=== PATIENT | male | born 1955 | race Caucasian/White ===

== ENCOUNTER 2023-12-28 18:06 | Inpatient (IN) | payer MEDICARE, OTHER, SELFPAY ==
[2023-12-28 18:06] VITALS: BP 129/62; PULSE 86; RESP 20; TEMP 36.3; O2SAT 97
--- NOTE | 2023-12-28 19:04 | NURSING ---
Patient arrived to unit at 1745.
--- NOTE | 2023-12-28 19:14 | HP.PCM_ITS ---
HPI - General General Date of Admission: 12/28/23 Date of Service: 12/29/23 Chief Complaint: Here for rehabilitation, intravenous antibiotics. HPI Narrative CELSO CARRILLO, is a 68 Male who presents with followin12/20/2023 Admit to [facility]. Fell, unable to get up, brought in by squad. Patient down for a while, daughter could not reach him by phone, called police for welfare check. CT brain okay, X-ray left femur okay, X-ray left shoulder okay. PT/OT for falls. Chest X-ray showed left basilar infiltrate. Vancomycin/Zosyn for sepsis 2/2 pneumonia. CPK 1821. Gentle IV fluids, trend CPK for rhabdomyolysis. Creatinine 3.39, baseline Creatinine 3.2. 12/25/2023 Patient had delirium/visual hallucinations. YOCASTA negative vegetations. Metabolic acidosis resolved, off Bicarb drip. Blood culture growing Group B strep, ID recommended Ceftriaxone IV x 2 weeks. Negative for endocarditis. Creatinine improved to 1.5 with IV fluid hydration. Left shoulder pain needs MRI, Orthopedic follow-up. Hemoglobin stable for anemia of CKD, iron deficiency. Delirium improved. 12/28/2023 Admit to TCU with debility, here for rehabilitation, strengthening, intravenous antibiotics prior to discharge home. [facility] Medical History (Updated 12/28/23 @ 19:[address] Chito Degroot MD) Acute delirium Bacteremia due to group B Streptococcus Chronic diarrhea Chronic kidney disease, stage 3a Debility Diabetes mellitus type II, uncontrolled Glaucoma Gout Hypertension Left rotator cuff tear arthropathy Metabolic acidosis Morbid obesity Multiple falls Obstructive sleep apnea Opioid dependence Rhabdomyolysis Sepsis Umbilical hernia Home Medications acetaminophen 325 mg tablet 650 mg PO Q6H PRN pain 12/28/23 [History Last Taken 12/28/23] allopurinol 300 mg tablet 300 mg PO QHS gout 12/28/23 [History Last Taken ] aspirin 81 mg tablet,delayed release 81 mg PO DAILY heart 12/28/23 [History Last Taken 12/28/23] bumetanide 2 mg tablet 2 mg PO DAILY water pill 12/28/23 [History Last Taken 12/28/23] calcium acetate 667 mg tablet 667 mg PO BID GERD 12/28/23 [History Last Taken 12/28/23] ceftriaxone 2 gram intravenous piggyback 2 g IV Q24H infection 12/28/23 [History Last Taken 12/28/23] cholecalciferol (vitamin D3) 125 mcg (5,000 unit) capsule 125 mcg PO DAILY supplement 12/28/23 [History Last Taken 12/28/23] emollient 1 applic topical BID legs 12/28/23 [History Last Taken 12/28/23] fenofibrate 150 mg capsule 145 mg PO QHS cholesterol 12/28/23 [History Last Taken 12/28/23] folic acid 1 mg tablet 1 mg PO DAILY supplement 12/28/23 [History Last Taken 12/28/23] insulin aspart See Protocol subcut ACHS diabetes 12/28/23 [History Last Taken 12/28/23] insulin glargine 100 unit/mL (3 mL) subcutaneous pen 18 unit subcut BID blood sugar 12/28/23 [History Last Taken 12/28/23] latanoprost 0.005 % eye drops 1 drp EACH EYE QHS eyes 12/28/23 [History Last Taken 12/27/23] miconazole nitrate 2 % topical powder 1 applic topical BID antifungal 12/28/23 [History Last Taken 12/28/23] pantoprazole 40 mg tablet,delayed release 40 mg PO DAILY stomach 12/28/23 [History Last Taken 12/28/23] pioglitazone 45 mg tablet (Actos) 45 mg PO DAILY diabetes 12/28/23 [History Last Taken Unknown] polysaccharide iron complex 150 mg iron capsule (Ferrex) 150 mg PO DAILY supplement 12/28/23 [History Last Taken 12/28/23] sodium bicarbonate 650 mg tablet 650 mg PO DAILY supplemet 12/28/23 [History Last Taken 12/28/23] Allergy/AdvReac Type Severity Reaction Status Date / Time cephalexin [From Keflex] Allergy Unknown swelling Verified 12/28/23 19:00 pseudoephedrine Allergy Unknown Anaphylaxis Verified 12/28/23 19:00 [From Sudafed] Cplrrrg-SHM-LqG Reductase Allergy Unknown muscle pain Verified 12/28/23 19:00 Inhibitor Surgical History (Updated 12/28/23 @ 19:[address] Chito Degroot MD) History of lithotripsy Social History (Updated 12/28/23 @ 19:[address] Chito Degroot MD) household members: none Smoking Status: Never smoker alcohol intake: never substance use type: does not use caffeine: Yes Type: carbonated beverages Number of servings: 1 additional social history: Retired. ROS Constitutional Constitutional: Denies chills, fever(s) or weight gain ENT HEENT: Denies headache(s), nasal congestion or nasal discharge Cardiovascular Cardiovascular: Denies chest pain or palpitations Respiratory/Chest Respiratory/Chest: Denies cough, excessive phlegm production or shortness of breath with exertion Gastrointestinal Gastrointestinal: Denies abdominal pain, nausea or vomiting Genitourinary Genitourinary: Denies dysuria Musculoskeletal Musculoskeletal: Denies joint pain or joint swelling Integumentary Integumentary: Denies rash or wounds Neurologic Neurologic: Denies focal weakness, numbness or tingling Psychiatric Psychiatric: Denies anxiety, auditory hallucinations, depression, homicidal ideation or suicidal ideation Vital Signs Vital Signs Vital Signs: 12/28/23 18:06 Temperature 97.4 F L Temperature Source Temporal Pulse Rate 86 Respiratory Rate 20 H Blood Pressure 129/62 H Blood Pressure Mean 84 Blood Pressure Source Monitor Blood Pressure Position Semi-Fowlers Blood Pressure Location Right Arm Pulse Ox 97 Oxygen Delivery Method Room Air Physical Exam Const alert General Appearance: cooperative HEENT normocephalic Eyes PERRL and EOMs intact bilaterally Neck supple, no JVD and no carotid bruits Resp normal respiratory effort, normal air movement and clear to auscultation bilaterally Cardio regular rate and regular rhythm GI normal to inspection, nondistended, normoactive bowel sounds, non-tender and non-distended Extremity normal capillary refill Extremity Narrative: Right forearm PICC. General Extremity: Negative for edema Skin no rashes or lesions noted General Skin Exam: no breakdown Psych affect normal Appearance: appropriate Results Lab / Micro Data 12/29/23 05:14 12/29/23 05:14 Assessment & Plan Assessment/Plan (1) Debility: (2) Multiple falls: (3) Sepsis: (4) Bacteremia due to group B Streptococcus: (5) Acute delirium: (6) Left rotator cuff tear arthropathy: (7) Rhabdomyolysis: (8) Metabolic acidosis: (9) Morbid obesity: (10) Chronic kidney disease, stage 3a: (11) Diabetes mellitus type II, uncontrolled: (12) Chronic diarrhea: (13) Umbilical hernia: (14) Glaucoma: (15) Gout: (16) Hypertension: (17) Obstructive sleep apnea: (18) Opioid dependence: PLAN: Plan 68 year old male with below past medical hospitalized for Sepsis, Group B strep bacteremia, complicated by acute delirium, rhabdomyolysis, metabolic acidosis, admitted to TCU with debility, here for rehabilitation, strengthening, intravenous antibiotics, prior to discharge home alone. * Debility - PT/OT. * Pain - Tylenol 1000mg q6 prn pain (1-10), Tylenol 1000mg 0800, 2200. * Bowel - senna/colace 1 tablet bid prn, Magnesium citrate 300ml daily prn. * Adult immunization - Administer pneumonia vaccine, covid vaccine, flu vaccine as appropriate. * DVT prophylaxis - Lovenox 30mg sc daily. * Gout - Allopurinol 300mg qhs. * CV prophylaxis - Aspirin 81mg daily. * Edema - Bumex 2mg daily. * Hyperphosphatemia - Phoslo 667mg bidcm. * Group B strep bacteremia/sepsis - Ceftriaxone 2gm iv q24 thru 01/03/2024, Consult Dr. Camargo. * Vitamin D deficiency - D3 125mcg daily. * Hyperlipidemia - Fenofibrate 145mg qhs. * Folate deficiency - Foilc acid 1mg daily. * Diabetes Mellitus II - Pioglitazone 45mg daily, Glargine 18 units bid, Glucagon 1mg im x 1 prn. * Iron deficiency anemia - Ferrex 150mg daily, Vitamin C 500mg daily. * Glaucoma - Latanoprost 1gtt ou qhs. * Tinea Corporis - Miconazole topical bid. * GERD - Pantoprazole 40mg daily. * Skin irritation - Eucerin topical bid. * Metabolic acidosis - Sodium bicarb 650mg daily.
[2023-12-28 20:30] VITALS: PULSE 75; RESP 18; O2SAT 99
[2023-12-28 20:59] VITALS: BMI 47.2
[2023-12-28] MEDS: Latanoprost 0.005% 1 Bottle 1 DRP EACH EYE (21:24)
[2023-12-28] MEDS: Acetaminophen 500 MG Tablet 1000 MG PO (21:25)
[2023-12-28] MEDS: Fenofibrate 145 MG Tablet PO (21:26)
[2023-12-28] MEDS: Allopurinol 300 MG Tablet PO (21:26)
[2023-12-28] MEDS: Insulin Glargine-YFGN 100 UNIT/ML Pen 18 UNIT SC (21:29)
[2023-12-28] MEDS: Miconazole Nitrate 43 GM Bottle 1 APPLIC TOPICAL (21:32)
[2023-12-28] MEDS: Petrolatum 33% Tube 1 APPLIC TOPICAL (21:32)
[2023-12-28 21:39] LABS: Bedside Glucose 164 mg/dL (74-106)
[2023-12-29] MEDS: Acetaminophen 500 MG Tablet 1000 MG PO ×4 (03:29→21:47)
[2023-12-29] MEDS: Enoxaparin 30 MG/0.3 ML Syringe SC (05:46)
[2023-12-29 05:53] LABS: Absolute Neutrophil Count 8.3 X10^3/uL (2.0-7.7); Basophil# 0.05 X10^3/uL; Basophil% 0.5 % (0-1); Eosinophil# 0.24 X10^3/uL; Eosinophils% 2.2 % (0-5); Hematocrit 30.8 % (40-54); Hemoglobin 9.6 g/dL (13.0-16.5); Lymphocyte % 11.7 % (19-41); Mean Corp Hgb Conc 31.2 g/dL (32-36); Mean Corpuscular Hgb 31.2 pg (27.0-32.0); Mean Platelet Vol. 9.2 fl (6.2-12.0); Monocyte# 0.99 X10^3/uL; Monocyte% 8.9 % (0-10); NRBC Flagged by Analyzer 0 % (0-5); Neutrophil # 8.28 X10^3/uL (2.7-7.7); Neutrophil % 74.5 % (47-70); Platelet Count 389 K/mm3 (150-450); RBC Distribution Width CV 14.9 % (11.6-14.6); RBC Distribution Width SD 54.5 fl (35.1-43.9); Red Blood Count 3.08 M/mm3 (4.6-6.2); White Blood Count 11.1 K/mm3 (4.4-11.0)
[2023-12-29 06:31] LABS: Anion Gap 3 (5-15); BUN 35 mg/dL (7-18); Calcium,Total 8.9 mg/dL (8.5-10.1); Chloride 106 mmol/L (98-107); Creatinine, Serum 1.03 mg/dL (0.70-1.30); EST Glomerular Filtration Rate 76 mL/min (>60); Est Glom Filt Rate - Afr Amer 92 mL/min (>60); Estimated Creatinine Clearance 99.19 ml/min; Glucose 128 mg/dL (74-106); Potassium 4.2 mmol/L (3.5-5.1); Sodium Level 139 mmol/L (136-145)
[2023-12-29 07:02] LABS: Bedside Glucose 109 mg/dL (74-106)
[2023-12-29] MEDS: Iron Polysaccharide Complex 150 MG CAPSULE PO (08:59)
[2023-12-29] MEDS: Pioglitazone Hydrochloride 45 MG Tablet PO (08:59)
[2023-12-29] MEDS: Calcium Acetate 667 MG Capsule PO ×2 (08:59→16:41)
[2023-12-29] MEDS: Folic Acid 1 MG Tablet PO (08:59)
[2023-12-29] MEDS: Pantoprazole Sodium 40 MG Tablet PO (08:59)
[2023-12-29] MEDS: Bumetanide 2 MG Tablet PO (08:59)
[2023-12-29] MEDS: Aspirin E.C. 81 MG Tablet PO (08:59)
[2023-12-29] MEDS: Cholecalciferol (Vit D3) 125 MCG CAPSULE (5,000 UNITS) PO (08:59)
[2023-12-29] MEDS: Petrolatum 33% Tube 1 APPLIC TOPICAL ×2 (09:00→21:57)
[2023-12-29] MEDS: Insulin Glargine-YFGN 100 UNIT/ML Pen 18 UNIT SC ×2 (09:00→21:48)
[2023-12-29] MEDS: Ascorbic Acid 500 MG Tablet PO (09:00)
[2023-12-29] MEDS: Miconazole Nitrate 43 GM Bottle 1 APPLIC TOPICAL ×2 (09:01→22:03)
[2023-12-29 09:13] VITALS: BP 142/63; PULSE 84
[2023-12-29] MEDS: 0.9% Saline Lock 10 ML Syringe IV (10:19)
[2023-12-29] MEDS: Tuberculin,Purif.prot.deriv. 50 TU/ML Vial 0.100000000000000006 ML ID (10:20)
--- NOTE | 2023-12-29 10:41 | NURSING ---
Pt's Midline not getting any blood return and c/o of pain when flushing. Dr. Degroot updated N.O. received to discontinue and reinsert a new Midline. Zoe WILLAMS contacted and will be up to insert Midline.
[2023-12-29 10:43] VITALS: BP 130/53; PULSE 82; RESP 16; TEMP 36.6; O2SAT 97
[2023-12-29 11:11] LABS: Bedside Glucose 193 mg/dL (74-106)
[2023-12-29] MEDS: 0.9% Normal Saline (250mL Bag) 250 ML 100 ML IV (12:01)
[2023-12-29] MEDS: Ceftriaxone 2 GM in 0.9% Normal Saline (50mL MB+) 50 ML IV (12:01)
--- NOTE | 2023-12-29 12:11 | PCM.OP.PRO ---
Procedure Report Date of Procedure: 12/29/23 Assessment & Plan Assessment/Plan (1) Bacteremia due to group B Streptococcus: PLAN: Midline insertion in right basilic: Patient identity was verified with two patient identifiers. Hands were sanitized. The patient was positioned supine with right arm at 90 degrees. The patient's upper arm vasculature was assessed using ultrasound, and the right basilic vein was externally marked. An external measurement was obtained of 11 cm. Cap, mask, and prep gloves were donned. The underdrape was placed under the patient's arm. The site was prepped with chlorhexidine, and tourniquet was loosely applied. Prep gloves were discarded, and hands were sanitized. The sterile kit was opened with additional supplies dropped in. Sterile gown and gloves were donned, and the patient was draped. The sterile kit was assembled with all needle, introducer, connector, and catheter flushed with sterile normal saline. The marked site of insertion was anesthetized with 1% lidocaine. Patient tolerated well. The right basilic vein was then accessed using ultrasound guidance and guidewire was inserted to safety airam. The tourniquet was released. The access needle was removed while securing the guidewire in place. The site was again anesthetized with 1% lidocaine, prior to insertion of introducer sheath and dilator. Patient tolerated well. The catheter was trimmed to a length of 11 cm, and a flushed needleless connector was attached. The catheter was then inserted through the introducer sheath, slowly. There was no resistance on insertion. The introducer sheath was retracted and peeled away, incrementally, while keeping the catheter secured. The catheter was fully inserted leaving 0 cm external. Blood return was verified and the midline was flushed with sterile normal saline in a pulsatile fashion. Total sterile flushes used for the insertion was 3 10 ml syringes, one from the kit. Finally, the insertion site was cleaned with chlorhexidine, and the catheter was secured using a StatLock. The site was covered with a Tegaderm CHG Dressing. Baseline arm circumference was obtained at the insertion site and measured 40 cm. The primary nurse is aware that the midline is ready for use. REF: [id number] LOT: [id number] Procedures Radiology Radiology Access Procedures: MIDL
--- NOTE | 2023-12-29 12:44 | CON.PCM.ID_ITS ---
Assessment & Plan Assessment/Plan (1) Bacteremia due to group B Streptococcus: PLAN: Reviewed records from OSH. On ceftriaxone until 01/03/24, ok for line removal at that time. Finish abx as planned. Will follow as needed, thank you HPI Consult Data Date of Consult: 12/29/23 HPI Narrative Reason for Consultation: bacteremia HPI Narrative: CELSO CARRILLO, is a 68 M who presented to [facility] 12/20/23 after fall at home, down on ground around 5 hours. Some chronic L shoulder pain. Admitted on vanc/zosyn. Bcx with strep. Seen by ID, narrowed to ceftriaxone. YOCASTA neg for endocarditis. Discharged to TCU on ceftriaxone until 01/03/24. Feeling better, shoulder still sore, no fever or n/v/d. Full ROS performed and neg except as noted above. [facility] Medical History Acute delirium Bacteremia due to group B Streptococcus Chronic diarrhea Chronic kidney disease, stage 3a Debility Diabetes mellitus type II, uncontrolled Glaucoma Gout Hypertension Left rotator cuff tear arthropathy Metabolic acidosis Morbid obesity Multiple falls Obstructive sleep apnea Opioid dependence Rhabdomyolysis Sepsis Umbilical hernia Home Medications acetaminophen 325 mg tablet 650 mg PO Q6H PRN pain 12/28/23 [History Last Taken 12/28/23] allopurinol 300 mg tablet 300 mg PO QHS gout 12/28/23 [History Last Taken 12/27/23] aspirin 81 mg tablet,delayed release 81 mg PO DAILY heart 12/28/23 [History Last Taken 12/28/23] bumetanide 2 mg tablet 2 mg PO DAILY water pill 12/28/23 [History Last Taken 07/13] calcium acetate 667 mg tablet 667 mg PO BID GERD 12/28/23 [History Last Taken 12/28/23] ceftriaxone 2 gram intravenous piggyback 2 g IV Q24H infection 12/28/23 [History Last Taken 12/28/23] cholecalciferol (vitamin D3) 125 mcg (5,000 unit) capsule 125 mcg PO DAILY supplement 12/28/23 [History Last Taken 12/28/23] emollient 1 applic topical BID legs 12/28/23 [History Last Taken 12/28/23] fenofibrate 150 mg capsule 145 mg PO QHS cholesterol 12/28/23 [History Last Taken 12/28/23] folic acid 1 mg tablet 1 mg PO DAILY supplement 12/28/23 [History Last Taken 12/28/23] insulin aspart See Protocol subcut ACHS diabetes 12/28/23 [History Last Taken 12/28/23] insulin glargine 100 unit/mL (3 mL) subcutaneous pen 18 unit subcut BID blood sugar 12/28/23 [History Last Taken 12/28/23] latanoprost 0.005 % eye drops 1 drp EACH EYE QHS eyes 12/28/23 [History Last Taken 12/27/23] miconazole nitrate 2 % topical powder 1 applic topical BID antifungal 12/28/23 [History Last Taken 12/28/23] pantoprazole 40 mg tablet,delayed release 40 mg PO DAILY stomach 12/28/23 [History Last Taken 12/28/23] pioglitazone 45 mg tablet (Actos) 45 mg PO DAILY diabetes 12/28/23 [History Last Taken Unknown] polysaccharide iron complex 150 mg iron capsule (Ferrex) 150 mg PO DAILY supplement 12/28/23 [History Last Taken 12/28/23] sodium bicarbonate 650 mg tablet 650 mg PO DAILY supplemet 12/28/23 [History Last Taken 12/28/23] Allergy/AdvReac Type Severity Reaction Status Date / Time cephalexin [From Keflex] Allergy Unknown swelling Verified 12/28/23 19:00 pseudoephedrine Allergy Unknown Anaphylaxis Verified 12/28/23 19:00 [From Sudafed] Oynpfst-Dua-Trz Reductase Allergy Unknown muscle pain Verified 12/28/23 19:00 Inhibitor [Biuyqbl-UFK-MpO Reductase Inhibitor] Surgical History (Updated 12/28/23 @ 19:[address] Chito Degroot MD) History of lithotripsy Social History (Updated 12/28/23 @ 19:[address] Chito Degroot MD) household members: none Smoking Status: Never smoker alcohol intake: never substance use type: does not use caffeine: Yes Type: carbonated beverages Number of servings: 1 additional social history: Retired. Physical Exam Const alert, oriented x3 and no apparent distress General Appearance: cooperative HEENT normocephalic and head/scalp atraumatic Eyes PERRL and EOMs intact bilaterally Neck supple and No nodes Resp normal air movement and clear to auscultation bilaterally Cardio regular rate and regular rhythm GI soft to palpation, non-tender and non-distended Extremity General Extremity: edema Skin no rashes or lesions noted Neuro CN's II-XII intact bilaterally Medical Records Data Medical Nutrition Assessment Dietitian: Malnutrition Criteria Met Start: 12/29/23 10:35 Freq: Status: Active Protocol: Document 12/29/23 10:35 [facility] (Rec: 12/29/23 10:35 [facility] [id number]) Nutrition Malnutrition Evidence of Malnutrition Exists Yes Malnutrition (moderate): Acute Illness/Injury Evidenced By Weight Loss (Severe),Physical Changes (Moderate) Clinical Problem Acute Disease or Injury Related Malnutrition Etiology related to weakness and debility Signs/Symptoms as evidenced by muscle loss throughout body and 18.75% wt loss in past 3 mo? PO intake good, but has been purposely eating smaller portions. Status Active Problem Recommendation Dietitian Recommendations/Changes Change diet to Regular Sodium Restricted - if issues w/ hypo /hyperglycemia then can change to therapeutic cho controlled diet Lab / Micro Data Attestation: I reviewed the patient's lab results. 12/29/23 05:14 12/29/23 05:14 Labs: Laboratory Results - last 24 hr 12/28/23 21:19: POC Glucose 164 H 12/29/23 05:14: WBC 11.1 H, RBC 3.08 L, Hgb 9.6 L, Hct 30.8 L, MCV 100.0 H, MCH 31.2, MCHC 31.2 L, RDW Std Deviation 54.5 H, RDW Coeff of Desiree 14.9 H, Plt Count 389, MPV 9.2, Immature Gran % (Auto) 2.200 H, Neut % (Auto) 74.5 H, Lymph % (Auto) 11.7 L, Saline % (Auto) 8.9, Eos % (Auto) 2.2, Baso % (Auto) 0.5, Absolute Neuts (auto) 8.3 H, Absolute Lymphs (auto) 1.30, Nucleated RBC % 0, Sodium 139, Potassium 4.2, Chloride 106, Carbon Dioxide 30.0, Anion Gap 3 L, BUN 35 H, Creatinine 1.03, Estim Creat Clear Calc 99.19, Est GFR (MDRD) Af Amer 92, Est GFR (MDRD) Non-Af 76, BUN/Creatinine Ratio 34.0 H, Glucose 128 H, Calcium 8.9 12/29/23 06:31: POC Glucose 109 H 12/29/23 10:51: POC Glucose 193 H
--- NOTE | 2023-12-29 13:33 | NURSING ---
Application Lead Note; Activity Asset: Kimberly Zimmerman is independent in his choice of daily activities. He has stated he is not familiar with this area and is her because his daughter works at [employer]. He is not interested in group activities at this point however did state when he is feeling better he will revisit the opportunity. Erasmo welcomes visits from the therapy dog and associate account director when available. his family will bring him his newspapers from home to read and other items he may need or want. Staff will remind him of weekly activities and respect his right to say no.
--- NOTE | 2023-12-29 14:11 | PHA.CONS_ITS ---
Documented by User: Farhan Knox 12/29/23 14:46 TCU RX Drug Regimen Review Subjective/Objective Subjective/Objective: Subjective: TCU admission note. 68 year old male with below past medical hospitalized for Sepsis, Group B strep bacteremia, complicated by acute deliri um, rhabdomyolysis, metabolic acidosis, admitted to TCU with debility, here for rehabilitation, strengthening, intravenous antibiotics, prior to discharge home alone. Objective: Allergies cephalexin [From Keflex] Allergy (Unknown, Verified 12/28/23 19:00) swelling pseudoephedrine [From Sudafed] Allergy (Unknown, Verified 12/28/23 19:00) Anaphylaxis Ehqytif-CBG-JkO Reductase Inhibitor Allergy (Unknown, Verified 12/28/23 19:00) muscle pain Current Medications Generic Name Dose Route Start Last Admin Trade Name Freq PRN Reason Stop Dose Admin Acetaminophen 1,000 mg 12/28/23 19:45 12/29/23 03:29 Acetaminophen 500 Mg Tablet PO 1,000 mg Q6H PRN Administration Pain Score 1-10 Acetaminophen 1,000 mg 12/29/23 08:00 12/29/23 08:59 Acetaminophen 500 Mg Tablet PO 1,000 mg 0800,2200 YOLANDA Administration Allopurinol 300 mg 12/28/23 22:00 12/28/23 21:26 Allopurinol 300 Mg Tablet PO 300 mg QHS YOLANDA Administration Ascorbic Acid 500 mg 12/29/23 08:00 12/29/23 09:00 Ascorbic Acid 500 Mg Tablet PO 500 mg BREAKFAST YOLANDA Administration Aspirin 81 mg 12/29/23 10:00 12/29/23 08:59 Aspirin E.C. 81 Mg Tablet PO 81 mg DAILY YOLANDA Administration Bumetanide 2 mg 12/29/23 10:00 12/29/23 08:59 Bumetanide 2 Mg Tablet PO 2 mg DAILY YOLANDA Administration Protocol Calcium Acetate 667 mg 12/29/23 08:00 12/29/23 08:59 Calcium Acetate 667 Mg Capsule PO 667 mg BIDCM YOLANDA Administration Cholecalciferol 125 mcg 12/29/23 10:00 12/29/23 08:59 Cholecalciferol (Vit D3) 125 Mcg Capsule (5,000 Units) PO 125 mcg DAILY YOLANDA Administration Dextrose 0 gm 12/28/23 19:11 Dextrose 50%-Water 25 Gm/50 Ml Disp.Syrin IV X1 PRN Hypoglycemia Protocol Fenofibrate 145 mg 12/28/23 22:00 12/28/23 21:26 Fenofibrate 145 Mg Tablet PO 145 mg QHS YOLANDA Administration Folic Acid 1 mg 12/29/23 08:00 12/29/23 08:59 Folic Acid 1 Mg Tablet PO 1 mg DAILYCM YOLANDA Administration Glucagon 1 mg 12/28/23 19:11 Glucagon 1 Mg/Ml Syringe IM X1 PRN Hypoglycemia Sodium Chloride 250 mls @ 15 mls/hr 12/28/23 19:03 12/29/23 12:54 IV 0 mls/hr .[id number] PRN Infusion Saline Flush Ceftriaxone Sodium 2 gm/ 50 mls @ 100 mls/hr 12/29/23 10:00 12/29/23 12:54 Sodium Chloride IV 01/03/24 10:01 Infused Q24 YOLANDA Infusion Insulin Glargine 18 unit 12/28/23 22:00 12/29/23 09:00 Insulin Glargine-Yfgn 100 Unit/Ml Pen SC 18 unit BID YOLANDA Administration Latanoprost 1 drp 12/28/23 22:00 12/28/23 21:24 Latanoprost 0.005% 1 Bottle EACH EYE 1 drp QHS YOLANDA Administration Magnesium Citrate 300 ml 12/28/23 19:44 Magnesium Citrate 300 Ml PO DAILY PRN Constipation Miconazole Nitrate 1 applic 12/28/23 22:00 12/29/23 09:01 Miconazole Nitrate 43 Gm Bottle TOPICAL 1 applic BID YOLANDA Administration Multi-Ingredient Cream 1 applic 12/28/23 22:00 12/29/23 09:00 Petrolatum 33% Tube TOPICAL 1 applic BID YOLANDA Administration Pantoprazole Sodium 40 mg 12/29/23 10:00 12/29/23 08:59 Pantoprazole Sodium 40 Mg Tablet PO 40 mg DAILY YOLANDA Administration Pioglitazone HCl 45 mg 12/29/23 10:00 12/29/23 08:59 Pioglitazone Hydrochloride 45 Mg Tablet PO 45 mg DAILY YOLANDA Administration Polysaccharide Iron Complex 150 mg 12/29/23 08:00 12/29/23 08:59 Iron Polysaccharide Complex 150 Mg Capsule PO 150 mg DAILYCM YOLANDA Administration Senna/Docusate Sodium 1 tablet 12/28/23 19:44 Senna/Docusate Sodium 1 Tablet PO BID PRN CONSTIPATION Sodium Chloride 10 - 40 ml 12/28/23 19:03 12/29/23 10:19 0.9% Saline Lock 10 Ml Syringe IV 20 ml UD PRN Administration Midline Flush Tuberculin PPD 0.1 ml 01/05/24 10:00 Tuberculin,Purif.Prot.Deriv. 50 Tu/Ml Vial ID 01/05/24 10:01 X1 ONE Problem List (Updated 12/28/23 @ 19:[address] Chito Degroot MD) Opioid dependence (Acute) Obstructive sleep apnea (Acute) Hypertension (Chronic) Gout (Acute) Glaucoma (Acute) Umbilical hernia (Acute) Chronic diarrhea (Chronic) Diabetes mellitus type II, uncontrolled (Acute) Chronic kidney disease, stage 3a (Chronic) Morbid obesity (Acute) Metabolic acidosis (Acute) Rhabdomyolysis (Acute) Left rotator cuff tear arthropathy (Acute) Acute delirium (Acute) Bacteremia due to group B Streptococcus (Acute) Sepsis (Acute) Multiple falls (Acute) Debility (Acute) Vital Signs Temp Pulse Resp BP Pulse Ox O2 Del Method 97.8 F 82 16 130/53 H 97 Room Air 12/29/23 10:43 12/29/23 10:43 12/29/23 10:43 12/29/23 10:43 12/29/23 10:43 12/29/23 11:20 Oxygen Delivery Method Room Air Weight: 149.5 kg Body Mass Index (BMI) 47.2 Sodium 139 mmol/L (136-145) 12/29/23 05:14 Potassium 4.2 mmol/L (3.5-5.1) 12/29/23 05:14 Chloride 106 mmol/L (98-107) 12/29/23 05:14 Carbon Dioxide 30.0 mmol/L (21.0-32.0) 12/29/23 05:14 Anion Gap 3 (5-15) L 12/29/23 05:14 BUN 35 mg/dL (7-18) H 12/29/23 05:14 Creatinine 1.03 mg/dL (0.70-1.30) 12/29/23 05:14 Est GFR (MDRD) Af Amer 92 mL/min (>60) 12/29/23 05:14 Est GFR (MDRD) Non-Af 76 mL/min (>60) 12/29/23 05:14 BUN/Creatinine Ratio 34.0 RATIO (10-20) H 12/29/23 05:14 Glucose 128 mg/dL (74-106) H 12/29/23 05:14 Assessment/Plan: 1. Pain: acetaminophen 1000 mg PO Q6H PRN pain (1-10), acetaminophen 1000 mg PO @ 0800 and 2200. The patient has used 2 doses of PRN acetaminophen for pain l evels of 1-210. Please continue to monitor pain levels, PRN medication usage, and LFTs (no recent LFTs documented). 2. Bowel: senna/docusate 1 tablet PO BID PRN constipation, magnesium citrate 300 mL PO daily PRN constipation. The patient has not required any PRN doses of senna/docusate or magnesium citrate so far this admission, and has also not had a bowel movement so far this admission. Please continue to monitor for constipation, diarrhea, PRN medication usage and bowel movements. 3. Group B strep bacteremia: ceftriaxone 2 grams IV daily through 01/03/24. Please continue to monitor for s/s of infection such as fever (recent temps 97.4 and 97.8F), chills, WBC count (WBC = 11.1 K/mm3 on 12/29/23), and diarrhea. 4. Gout: allopurinol 300 mg PO QHS. Please continue to monitor for s/s of gout such as pain/erythema/swelling of joints, renal function (serum creatinine = 1.03 mg/dL with creatinine clearance ~ 99 mL/min on 12/29/23), and uric acid levels (no recent uric acid levels documented). 5. CV prophylaxis: aspirin 81 mg PO daily. Please continue to monitor for chest pain, or other s/s of CAD, platelet count (Plt = 389 K/mm3 on 12/29/23), for s/s of bleeding/excessive bruising and for GI distress with aspirin administration. 6. Edema: bumetanide 2 mg PO daily. Please continue to monitor for s/s of edema, renal function (serum creatinine = 1.03 mg/dL with creatinine clearance ~ 99 mL/min on 12/29/23), potassium levels (K = 4.2 mmol/L on 12/29/23), sodium levels (Na = 139 mmol/L on 12/29/23), calcium levels (Ca = 8.9 mg/dL on 12/29/23), and for s/s of dehydration. 7. Hyperphosphatemia: calcium acetate 667 mg Po BID with meals. Please continue to monitor calcium levels (Ca = 8.9 mg/dL on 12/29/23), and phosphorus levels (no recent phosphorus level documented). Please consider ordering a phosphorus level to assess hyperphosphatemia and dosing of calcium acetate if clinically indicated. 8. Diabetes Mellitus II: insulin glargine 18 units SC BID, D50% 25 g x 1 PRN hypoglycemia, glucagon IM x 1 PRN hypoglycemia, pioglitazone 45 mg PO daily. Please continue to monitor blood sugars, (recent BG = 109-193 mg/dL), hemoglobin A1C levels (A1C = no recent hemoglobin A1C documented), for s/s of hypo/hyperglycemia, LFTs (no recent LFTs documented), edema, and hypoglycemia. The patient has a current problem of edema, and is on pioglitazone which can cause edema. Please consider stopping pioglitazone to see if bumetanide is necessary for edema or if it is treating the side effect of edema d/t pioglitazone. If the patient's blood sugars increase off of pioglitazone, please consider increasing insulin dose to compensate. 9. Hyperlipidemia: fenofibrate 145 mg PO QHS. Please continue to monitor lipid levels (no recent lipid levels documented) specifically triglycerides (no recent triglyceride levels documented), LFTs (no recent LFTs documented), and for myalgias. Please consider ordering lipid levels/triglyceride levels as the patient has no recent levels documented if clinically indicated. 10. GERD: pantoprazole 40 mg PO BID. Please continue to monitor for s/s of GERD, for diarrhea that could indicate clostridium difficile infection, and for s/s of bone resorption such as fractures. 11. Iron deficiency anemia: iron polysaccharide 150 mg PO daily with a meal, ascorbic acid 500 mg PO daily with breakfast. Please continue to monitor hemoglobin levels (Hgb = 9.6 g/dL on 12/29/23), for GI distress with iron administration and iron levels (no recent iron levels documented). 12. Glaucoma: latanoprost 0.005% 1 drop QHS in each eye. Please continue to monitor for abnormal eye sensations, hyperemia, eye pain, and stinging of the eyes. 13.Vitamin D deficiency: cholecalciferol 125 mcg Po daily. Please continue to monitor for s/s of vitamin D deficiency, as well as vitamin D levels (the patient does not have any vitamin D levels documented recently). 14. Folate deficiency: folic acid 1 mg PO daily. Please continue to monitor for s/s of folic acid deficiency. 15. Skin irritation/tinea corporis: miconazole powder 1 application topically BID, petrolatum 33% 1 application topically BID. Please continue to monitor for skin irritation and for resolution of tinea corporis. Assessment/Plan for indications treated with psychotropic medications: NA Medical chart and medication regimen reviewed. The following medication irregula rities or issues were identified: 1. Diabetes Mellitus II: insulin glargine 18 units SC BID, D50% 25 g x 1 PRN hypoglycemia, glucagon IM x 1 PRN hypoglycemia, pioglitazone 45 mg PO daily. The patient has a current problem of edema, and is on pioglitazone which can cause edema. Please consider stopping pioglitazone to see if bumetanide is necessary for edema or if it is treating the side effect of edema d/t pioglitazone. If the patient's blood sugars increase off of pioglitazone, please consider increasing insulin dose to compensate. 2. Hyperlipidemia: fenofibrate 145 mg PO QHS. Please consider ordering lipid levels/triglyceride levels as the patient has no recent levels documented if clinically indicated. Date Date of Note:: 12/29/23 Documented by User: Dr. Chito Degroot MD 12/29/23 15:25 TCU RX Drug Regimen Review Provider Comments Provider responsibility Provider Comments to Recommendations by Pharmacy: Agree
--- NOTE | 2023-12-29 15:42 | CASEMGMT ---
Social Work Met with patient to complete initial assessment. Introduced self and role. Verified/updated contacts. Pt confirmed code status as full code. Requested dtr provide copies of advanced directives. Educated to Medicare benefit and copay coverage. Pt's goal is regain strength and mobility to return home alone. SW will continue to follow for DC planning. DONALD JohnsonW
--- NOTE | 2023-12-29 15:53 | CHAPLAIN ---
Type of Pastoral Visit _x__ Initial Visit ___ Follow-up Visit ___ On-call Visit ___ General Patient Visit ___ Spiritual Assessment ___ Family Conference ___ Bereavement ___ Rapid Response ___ Code Blue ___ Other (describe below) Pastoral Care Referral From _x__ Patient ___ Family ___ Nurse ___ Physician ___ Oceanographic Meteorologist ___ Pipe Line Inspector ___ Other (describe below) Sacrament/Intervention _x__ Active listening ___ Anointing ___ Synagogue ___ Bereavement ___ Communion ___ Sharee exploration ___ _x__ Life review _x__ Prayer ___ Reconciliation ___ Sacrament of Sick _x__ Supportive presence ___ Wedding ___ Other (describe below) Pastoral Comments patient is welcoming and offered some insights and 'short stories' about his life; pt describes his serious health issues of last few weeks and how it 'got my attention ; daughter is in the room and offers her own insights and answers many of the questions directed to the patient; daughter is very hands on and is giving father his directions on what he will and will not do ; pt revealed that he is a of two years + and how he is handling that; pt admits to concerns about his own and how it may be; pt admits that he was struggling with some depression but doing better now ; pt expresses thanks for the visits and welcomes a return at another time; prayer is offered in support of pt's needs
[2023-12-29 16:43] LABS: Bedside Glucose 298 mg/dL (74-106)
[2023-12-29] MEDS: Fenofibrate 145 MG Tablet PO (21:47)
[2023-12-29] MEDS: Allopurinol 300 MG Tablet PO (21:47)
[2023-12-29] MEDS: Latanoprost 0.005% 1 Bottle 1 DRP EACH EYE (21:47)
[2023-12-29 21:52] LABS: Bedside Glucose 283 mg/dL (74-106)
[2023-12-30 07:03] LABS: Bedside Glucose 165 mg/dL (74-106)
[2023-12-30] MEDS: Acetaminophen 500 MG Tablet 1000 MG PO ×3 (08:02→21:24)
[2023-12-30] MEDS: Cholecalciferol (Vit D3) 125 MCG CAPSULE (5,000 UNITS) PO (08:02)
[2023-12-30] MEDS: Iron Polysaccharide Complex 150 MG CAPSULE PO (08:02)
[2023-12-30] MEDS: Ascorbic Acid 500 MG Tablet PO (08:02)
[2023-12-30] MEDS: Aspirin E.C. 81 MG Tablet PO (08:02)
[2023-12-30] MEDS: Folic Acid 1 MG Tablet PO (08:02)
[2023-12-30] MEDS: Pantoprazole Sodium 40 MG Tablet PO (08:03)
[2023-12-30] MEDS: Calcium Acetate 667 MG Capsule PO (08:03)
[2023-12-30] MEDS: Petrolatum 33% Tube 1 APPLIC TOPICAL ×2 (08:05→21:25)
[2023-12-30] MEDS: Miconazole Nitrate 43 GM Bottle 1 APPLIC TOPICAL ×2 (08:07→21:25)
[2023-12-30 08:32] LABS: Anion Gap 3 (5-15); BUN 36 mg/dL (7-18); BUN/Creat Ratio 32.7 RATIO (10-20); Calcium,Total 8.9 mg/dL (8.5-10.1); Chloride 106 mmol/L (98-107); Cholesterol 77 mg/dL (200); EST Glomerular Filtration Rate 70 mL/min (>60); Est Glom Filt Rate - Afr Amer 85 mL/min (>60); Estimated Creatinine Clearance 92.87 ml/min; Glucose 168 mg/dL (74-106); High Density Lipoprotein 33 mg/dL; Potassium 4.2 mmol/L (3.5-5.1); Sodium Level 136 mmol/L (136-145); Triglycerides 87 mg/dL; Very Low Density Lipoprotein 17 mg/dL (5-40)
[2023-12-30] MEDS: 0.9% Saline Lock 10 ML Syringe IV ×2 (10:48→21:31)
[2023-12-30] MEDS: Ceftriaxone 2 GM in 0.9% Normal Saline (50mL MB+) 50 ML IV (10:50)
[2023-12-30] MEDS: Insulin Glargine-YFGN 100 UNIT/ML Pen 18 UNIT SC ×2 (10:58→21:21)
[2023-12-30 11:16] VITALS: BP 125/55; PULSE 92; RESP 18; TEMP 36.8; O2SAT 92
[2023-12-30 11:23] LABS: Bedside Glucose 268 mg/dL (74-106)
[2023-12-30 12:01] LABS: Bedside Glucose 289 mg/dL (74-106)
[2023-12-30 15:32] VITALS: BP 136/65; PULSE 90; RESP 18; TEMP 36.9; O2SAT 97
[2023-12-30 17:28] LABS: Bedside Glucose 304 mg/dL (74-106)
[2023-12-30] MEDS: Allopurinol 300 MG Tablet PO (21:24)
[2023-12-30] MEDS: Fenofibrate 145 MG Tablet PO (21:24)
[2023-12-30] MEDS: Latanoprost 0.005% 1 Bottle 1 DRP EACH EYE (21:25)
[2023-12-30 21:35] LABS: Bedside Glucose 294 mg/dL (74-106)
[2023-12-30 23:00] VITALS: RESP 17
[2023-12-31] MEDS: Acetaminophen 500 MG Tablet 1000 MG PO ×4 (03:43→21:30)
--- NOTE | 2023-12-31 03:55 | NURSING ---
Patient reports use of SCD boots at home to help with BLE edema and prevent blood clots. Patient asked if he should still be continuing this intervention. This nurse asked patient if he could have someone bring them in, he states he can have them brought in by tomorrow.
[2023-12-31 05:39] LABS: Hematocrit 30.9 % (40-54); Hemoglobin 9.6 g/dL (13.0-16.5)
[2023-12-31 06:12] LABS: Anion Gap 5 (5-15); BUN 40 mg/dL (7-18); BUN/Creat Ratio 33.9 RATIO (10-20); Calcium,Total 8.5 mg/dL (8.5-10.1); Chloride 105 mmol/L (98-107); Creatinine, Serum 1.18 mg/dL (0.70-1.30); EST Glomerular Filtration Rate 65 mL/min (>60); Est Glom Filt Rate - Afr Amer 79 mL/min (>60); Estimated Creatinine Clearance 86.58 ml/min; Glucose 206 mg/dL (74-106); Potassium 4.4 mmol/L (3.5-5.1); Sodium Level 136 mmol/L (136-145)
[2023-12-31 06:48] LABS: Bedside Glucose 178 mg/dL (74-106)
--- NOTE | 2023-12-31 08:01 | NURSING ---
Pt informs this nurse he uses pneumatic pumps at home daily and wears tubigrips for edema management. Pt brought several pairs of tubigrips that are clean and in his closet. Encouraged to have his family bring the pneumatic pumps. Nursing can obtain and order and maintenance can assess the equipment for safety. Will report to oncoming nurse.
[2023-12-31 09:09] VITALS: BP 119/52; PULSE 85; RESP 17; TEMP 36.6; O2SAT 97
[2023-12-31] MEDS: Folic Acid 1 MG Tablet PO (09:12)
[2023-12-31] MEDS: Iron Polysaccharide Complex 150 MG CAPSULE PO (09:12)
[2023-12-31] MEDS: Aspirin E.C. 81 MG Tablet PO (09:13)
[2023-12-31] MEDS: Ascorbic Acid 500 MG Tablet PO (09:13)
[2023-12-31] MEDS: Miconazole Nitrate 43 GM Bottle 1 APPLIC TOPICAL ×2 (09:13→21:31)
[2023-12-31] MEDS: Insulin Glargine-YFGN 100 UNIT/ML Pen 18 UNIT SC ×2 (09:13→21:28)
[2023-12-31] MEDS: Petrolatum 33% Tube 1 APPLIC TOPICAL ×2 (09:13→21:31)
[2023-12-31] MEDS: Pantoprazole Sodium 40 MG Tablet PO (09:15)
[2023-12-31] MEDS: Cholecalciferol (Vit D3) 125 MCG CAPSULE (5,000 UNITS) PO (09:15)
[2023-12-31] MEDS: Ceftriaxone 2 GM in 0.9% Normal Saline (50mL MB+) 50 ML IV (09:23)
[2023-12-31] MEDS: 0.9% Saline Lock 10 ML Syringe IV (09:24)
[2023-12-31 11:53] LABS: Bedside Glucose 238 mg/dL (74-106)
[2023-12-31 16:42] LABS: Bedside Glucose 280 mg/dL (74-106)
[2023-12-31] MEDS: Latanoprost 0.005% 1 Bottle 1 DRP EACH EYE (21:29)
[2023-12-31] MEDS: Allopurinol 300 MG Tablet PO (21:30)
[2023-12-31] MEDS: Fenofibrate 145 MG Tablet PO (21:31)
[2023-12-31 21:49] LABS: Bedside Glucose 293 mg/dL (74-106)
[2024-01-01] MEDS: 0.9% Saline Lock 10 ML Syringe IV ×3 (03:12→22:24)
[2024-01-01 06:13] LABS: Hematocrit 29.4 % (40-54); Hemoglobin 9.3 g/dL (13.0-16.5)
[2024-01-01 06:25] LABS: Bedside Glucose 182 mg/dL (74-106)
[2024-01-01 06:33] LABS: Anion Gap 3 (5-15); BUN 43 mg/dL (7-18); BUN/Creat Ratio 36.8 RATIO (10-20); Calcium,Total 8.4 mg/dL (8.5-10.1); Chloride 104 mmol/L (98-107); Creatinine, Serum 1.17 mg/dL (0.70-1.30); EST Glomerular Filtration Rate 66 mL/min (>60); Est Glom Filt Rate - Afr Amer 79 mL/min (>60); Estimated Creatinine Clearance 87.32 ml/min; Glucose 198 mg/dL (74-106); Potassium 4.4 mmol/L (3.5-5.1); Sodium Level 137 mmol/L (136-145)
--- NOTE | 2024-01-01 06:58 | NURSING ---
Late entry for 12/31/23 at 2100: Spoke w/ Dr. miller via phone to update pt has a pneumatic pump for BLE edema and his own supply of tubigrips from home. Telephone order received and read back that pt can use pneumatic compression pump and tubigrips as directed.
--- NOTE | 2024-01-01 08:19 | NURSING ---
Unable to administer Tylenol at 0313 d/t maximum of Tylenol administered within the past 24 hours. Pt updated. Suggested possibly having frequency of scheduled Tylenol increased to every 8 hours from every 12 hours and possible have a topical agent for lt shoulder. Pt declines both options and would like current regimen to continue. In no acute distress. Will continue to monitor.
[2024-01-01] MEDS: Acetaminophen 500 MG Tablet 1000 MG PO ×3 (09:14→22:16)
[2024-01-01] MEDS: Iron Polysaccharide Complex 150 MG CAPSULE PO (09:14)
[2024-01-01] MEDS: Ascorbic Acid 500 MG Tablet PO (09:14)
[2024-01-01] MEDS: Aspirin E.C. 81 MG Tablet PO (09:15)
[2024-01-01] MEDS: Folic Acid 1 MG Tablet PO (09:15)
[2024-01-01] MEDS: Pantoprazole Sodium 40 MG Tablet PO (09:15)
[2024-01-01] MEDS: Cholecalciferol (Vit D3) 125 MCG CAPSULE (5,000 UNITS) PO (09:15)
[2024-01-01] MEDS: Miconazole Nitrate 43 GM Bottle 1 APPLIC TOPICAL ×2 (09:16→22:17)
[2024-01-01] MEDS: Petrolatum 33% Tube 1 APPLIC TOPICAL ×2 (09:17→22:18)
[2024-01-01] MEDS: Insulin Glargine-YFGN 100 UNIT/ML Pen 18 UNIT SC ×2 (09:22→22:18)
[2024-01-01] MEDS: predniSONE 10 MG Tablet PO (09:28)
[2024-01-01] MEDS: 0.9% Normal Saline (250mL Bag) 250 ML 15 ML IV (09:29)
[2024-01-01] MEDS: Ceftriaxone 2 GM in 0.9% Normal Saline (50mL MB+) 50 ML IV (09:29)
[2024-01-01 11:00] VITALS: BP 134/54; PULSE 88; RESP 18; TEMP 36.2; O2SAT 95
[2024-01-01 11:27] LABS: Bedside Glucose 221 mg/dL (74-106)
[2024-01-01] MEDS: Insulin Lispro 100 UNIT/ML INSULN.PEN SC ×2 (11:59→17:24)
--- NOTE | 2024-01-01 15:59 | CASEMGMT ---
Social Work BIMS () and PHQ-2 () completed for MDS assessment. Latia Sterling MSW MATERIALS INTERN
[2024-01-01 16:45] LABS: Bedside Glucose 271 mg/dL (74-106)
[2024-01-01 21:33] LABS: Bedside Glucose 348 mg/dL (74-106)
[2024-01-01 22:00] VITALS: PULSE 69; RESP 16
[2024-01-01] MEDS: Latanoprost 0.005% 1 Bottle 1 DRP EACH EYE (22:16)
[2024-01-01] MEDS: Fenofibrate 145 MG Tablet PO (22:17)
[2024-01-01] MEDS: Allopurinol 300 MG Tablet PO (22:17)
[2024-01-02 06:03] LABS: Hematocrit 28.9 % (40-54)
[2024-01-02 06:19] LABS: Bedside Glucose 238 mg/dL (74-106)
[2024-01-02 07:00] VITALS: O2SAT 95
[2024-01-02] MEDS: Insulin Lispro 100 UNIT/ML INSULN.PEN SC ×3 (08:54→17:39)
[2024-01-02] MEDS: Folic Acid 1 MG Tablet PO (08:55)
[2024-01-02] MEDS: Iron Polysaccharide Complex 150 MG CAPSULE PO (08:55)
[2024-01-02] MEDS: predniSONE 10 MG Tablet PO (08:56)
[2024-01-02] MEDS: Acetaminophen 500 MG Tablet 1000 MG PO ×3 (08:56→22:22)
[2024-01-02] MEDS: Ascorbic Acid 500 MG Tablet PO (08:57)
[2024-01-02] MEDS: Miconazole Nitrate 43 GM Bottle 1 APPLIC TOPICAL ×2 (08:59→22:19)
[2024-01-02] MEDS: Aspirin E.C. 81 MG Tablet PO (09:00)
[2024-01-02] MEDS: Petrolatum 33% Tube 1 APPLIC TOPICAL ×2 (09:01→22:20)
[2024-01-02] MEDS: Cholecalciferol (Vit D3) 125 MCG CAPSULE (5,000 UNITS) PO (09:02)
[2024-01-02 10:00] VITALS: PULSE 80
[2024-01-02] MEDS: Ceftriaxone 2 GM in 0.9% Normal Saline (50mL MB+) 50 ML IV (10:19)
[2024-01-02] MEDS: Insulin Glargine-YFGN 100 UNIT/ML Pen 18 UNIT SC ×2 (10:23→22:18)
[2024-01-02] MEDS: Pantoprazole Sodium 40 MG Tablet PO (10:23)
[2024-01-02] MEDS: 0.9% Normal Saline (250mL Bag) 250 ML 15 ML IV (10:38)
[2024-01-02 10:52] VITALS: BP 136/60; PULSE 80; RESP 18; TEMP 36.5
[2024-01-02 11:13] LABS: Bedside Glucose 271 mg/dL (74-106)
[2024-01-02 13:33] VITALS: BMI 47.3
[2024-01-02 16:50] LABS: Bedside Glucose 320 mg/dL (74-106)
[2024-01-02] MEDS: Tamsulosin HCl 0.4 MG Capsule 0.400000000000000022 MG PO (17:38)
[2024-01-02 21:59] LABS: Bedside Glucose 422 mg/dL (74-106)
[2024-01-02] MEDS: Latanoprost 0.005% 1 Bottle 1 DRP EACH EYE (22:21)
[2024-01-02] MEDS: Fenofibrate 145 MG Tablet PO (22:22)
[2024-01-02] MEDS: MELATONIN 10 MG TABLET PO (22:22)
[2024-01-02] MEDS: Allopurinol 300 MG Tablet PO (22:23)
[2024-01-02] MEDS: 0.9% Saline Lock 10 ML Syringe IV (23:34)
[2024-01-03 05:59] LABS: Hematocrit 28.6 % (40-54); Hemoglobin 8.8 g/dL (13.0-16.5)
[2024-01-03 06:50] LABS: Bedside Glucose 243 mg/dL (74-106)
[2024-01-03] MEDS: Insulin Lispro 100 UNIT/ML INSULN.PEN 13 UNIT SC ×3 (07:55→17:42)
[2024-01-03 08:09] VITALS: BP 145/66; PULSE 58; RESP 14; TEMP 36.4; O2SAT 96
[2024-01-03] MEDS: Folic Acid 1 MG Tablet PO (09:52)
[2024-01-03] MEDS: Iron Polysaccharide Complex 150 MG CAPSULE PO (09:52)
[2024-01-03] MEDS: predniSONE 10 MG Tablet PO (09:52)
[2024-01-03] MEDS: Ascorbic Acid 500 MG Tablet PO (09:53)
[2024-01-03] MEDS: Acetaminophen 500 MG Tablet 1000 MG PO ×3 (09:53→22:05)
[2024-01-03] MEDS: Miconazole Nitrate 43 GM Bottle 1 APPLIC TOPICAL ×2 (09:54→22:03)
[2024-01-03] MEDS: Aspirin E.C. 81 MG Tablet PO (09:54)
[2024-01-03] MEDS: Petrolatum 33% Tube 1 APPLIC TOPICAL ×2 (09:55→22:04)
[2024-01-03] MEDS: Cholecalciferol (Vit D3) 125 MCG CAPSULE (5,000 UNITS) PO (09:56)
[2024-01-03] MEDS: Pantoprazole Sodium 40 MG Tablet PO (09:57)
[2024-01-03 10:00] VITALS: O2SAT 96
[2024-01-03] MEDS: Insulin Glargine-YFGN 100 UNIT/ML Pen 20 UNIT SC ×2 (10:08→22:02)
[2024-01-03] MEDS: Ceftriaxone 2 GM in 0.9% Normal Saline (50mL MB+) 50 ML IV (10:21)
[2024-01-03] MEDS: 0.9% Saline Lock 10 ML Syringe IV ×3 (10:23→22:08)
[2024-01-03 11:43] LABS: Bedside Glucose 198 mg/dL (74-106)
[2024-01-03 14:00] VITALS: BP 128/55; PULSE 82; RESP 18; TEMP 36.3; O2SAT 98
[2024-01-03 17:13] LABS: Bedside Glucose 259 mg/dL (74-106)
[2024-01-03] MEDS: Tamsulosin HCl 0.4 MG Capsule 0.400000000000000022 MG PO (17:44)
[2024-01-03] MEDS: Allopurinol 300 MG Tablet PO (22:04)
[2024-01-03] MEDS: MELATONIN 10 MG TABLET PO (22:05)
[2024-01-03] MEDS: Latanoprost 0.005% 1 Bottle 1 DRP EACH EYE (22:06)
[2024-01-03] MEDS: Fenofibrate 145 MG Tablet PO (22:06)
[2024-01-03 23:12] LABS: Bedside Glucose 265 mg/dL (74-106)
[2024-01-04 06:13] LABS: Hematocrit 29.3 % (40-54); Hemoglobin 9.2 g/dL (13.0-16.5)
[2024-01-04 06:35] LABS: Anion Gap 2 (5-15); BUN 44 mg/dL (7-18); BUN/Creat Ratio 40.7 RATIO (10-20); Calcium,Total 8.3 mg/dL (8.5-10.1); Chloride 107 mmol/L (98-107); Creatinine, Serum 1.08 mg/dL (0.70-1.30); EST Glomerular Filtration Rate 72 mL/min (>60); Est Glom Filt Rate - Afr Amer 87 mL/min (>60); Estimated Creatinine Clearance 94.63 ml/min; Glucose 219 mg/dL (74-106); Potassium 4.8 mmol/L (3.5-5.1); Sodium Level 137 mmol/L (136-145)
[2024-01-04 06:44] LABS: Bedside Glucose 190 mg/dL (74-106)
[2024-01-04] MEDS: Insulin Lispro 100 UNIT/ML INSULN.PEN 13 UNIT SC ×3 (08:05→17:40)
[2024-01-04] MEDS: Folic Acid 1 MG Tablet PO (08:06)
[2024-01-04] MEDS: Iron Polysaccharide Complex 150 MG CAPSULE PO (08:06)
[2024-01-04] MEDS: predniSONE 10 MG Tablet PO (08:07)
[2024-01-04] MEDS: Acetaminophen 500 MG Tablet 1000 MG PO ×2 (08:07→15:46)
[2024-01-04] MEDS: Ascorbic Acid 500 MG Tablet PO (08:07)
[2024-01-04] MEDS: Aspirin E.C. 81 MG Tablet PO (08:07)
[2024-01-04] MEDS: Insulin Glargine-YFGN 100 UNIT/ML Pen 20 UNIT SC ×2 (08:07→21:57)
[2024-01-04] MEDS: Cholecalciferol (Vit D3) 125 MCG CAPSULE (5,000 UNITS) PO (08:08)
[2024-01-04] MEDS: Pantoprazole Sodium 40 MG Tablet PO (08:08)
[2024-01-04] MEDS: Petrolatum 33% Tube 1 APPLIC TOPICAL ×2 (11:57→21:46)
[2024-01-04] MEDS: Miconazole Nitrate 43 GM Bottle 1 APPLIC TOPICAL ×2 (11:57→21:46)
[2024-01-04 12:06] LABS: Bedside Glucose 329 mg/dL (74-106)
[2024-01-04 14:00] VITALS: BP 139/53; PULSE 62; RESP 16; TEMP 36.4; O2SAT 97
--- NOTE | 2024-01-04 14:12 | CASEMGMT ---
Social Work IDT met with patient and dtr for care plan meeting. Discussed patient's progress in PT/OT/SN. Educated to Medicare benefit and copay coverage. Pt and dtrs goal is to return home with independence of bed mobility, ambulation and ADL tasks. Pt has no local support, as he lives in [facility]. Pt is in [facility] d/t to dtr living and working in [place]. Therapy recommending several more weeks of continued therapy if seeing continued improvement prior to DC. Dtr is assisting pt with coordinating medical alert, but did request resources for home delivered meals. SW to look into resources. SW also inquired about dtr providing advanced directives. Dtr to contact bankruptcy attorney and fax directly to this worker. SW will continue to follow for DC planning. SW received fax of advanced directives and placed on chart. Latia Sterling MSW INTERNAL MEDICINE PHYSICIAN ASSISTANT
[2024-01-04 14:30] VITALS: O2SAT 96
[2024-01-04 16:32] LABS: Bedside Glucose 218 mg/dL (74-106)
[2024-01-04] MEDS: Tamsulosin HCl 0.4 MG Capsule 0.400000000000000022 MG PO (17:39)
[2024-01-04] MEDS: Latanoprost 0.005% 1 Bottle 1 DRP EACH EYE (21:44)
[2024-01-04] MEDS: MELATONIN 10 MG TABLET PO (21:45)
[2024-01-04] MEDS: Fenofibrate 145 MG Tablet PO (21:45)
[2024-01-04] MEDS: Allopurinol 300 MG Tablet PO (21:45)
[2024-01-04] MEDS: 0.9% Saline Lock 10 ML Syringe IV (22:00)
[2024-01-04 22:04] LABS: Bedside Glucose 215 mg/dL (74-106)
[2024-01-05] MEDS: Acetaminophen 500 MG Tablet 1000 MG PO ×4 (00:11→21:23)
[2024-01-05] MEDS: 0.9% Saline Lock 10 ML Syringe IV (00:34)
[2024-01-05 06:04] LABS: Absolute Lymphocyte Count 1.35 X10^3/uL (0.83-4.51); Absolute Neutrophil Count 6.5 X10^3/uL (2.0-7.7); Basophil# 0.04 X10^3/uL; Basophil% 0.5 % (0-1); Eosinophil# 0.02 X10^3/uL; Eosinophils% 0.2 % (0-5); Hematocrit 29.8 % (40-54); Hemoglobin 9.1 g/dL (13.0-16.5); Lymphocyte # 1.35 X10^3/ul (0.83-4.51); Lymphocyte % 15.4 % (19-41); Mean Corp Hgb Conc 30.5 g/dL (32-36); Mean Corpuscular Hgb 31.3 pg (27.0-32.0); Mean Corpuscular Volume 102.4 fL (80-94); Mean Platelet Vol. 8.8 fl (6.2-12.0); Monocyte# 0.74 X10^3/uL; Monocyte% 8.5 % (0-10); NRBC Flagged by Analyzer 0 % (0-5); Neutrophil # 6.47 X10^3/uL (2.7-7.7); Platelet Count 322 K/mm3 (150-450); RBC Distribution Width CV 15.9 % (11.6-14.6); RBC Distribution Width SD 59.6 fl (35.1-43.9); Red Blood Count 2.91 M/mm3 (4.6-6.2); White Blood Count 8.7 K/mm3 (4.4-11.0)
[2024-01-05 06:12] LABS: Bedside Glucose 162 mg/dL (74-106)
[2024-01-05 06:35] LABS: Anion Gap 0 (5-15); BUN 42 mg/dL (7-18); BUN/Creat Ratio 37.5 RATIO (10-20); Calcium,Total 8.2 mg/dL (8.5-10.1); Chloride 108 mmol/L (98-107); Creatinine, Serum 1.12 mg/dL (0.70-1.30); EST Glomerular Filtration Rate 69 mL/min (>60); Est Glom Filt Rate - Afr Amer 83 mL/min (>60); Estimated Creatinine Clearance 91.25 ml/min; Glucose 172 mg/dL (74-106); Potassium 4.7 mmol/L (3.5-5.1); Sodium Level 137 mmol/L (136-145)
[2024-01-05] MEDS: Insulin Lispro 100 UNIT/ML INSULN.PEN 13 UNIT SC ×3 (08:06→17:44)
[2024-01-05] MEDS: Folic Acid 1 MG Tablet PO (08:07)
[2024-01-05] MEDS: predniSONE 10 MG Tablet PO (08:07)
[2024-01-05] MEDS: Iron Polysaccharide Complex 150 MG CAPSULE PO (08:07)
[2024-01-05] MEDS: Miconazole Nitrate 43 GM Bottle 1 APPLIC TOPICAL ×2 (08:08→21:23)
[2024-01-05] MEDS: Aspirin E.C. 81 MG Tablet PO (08:08)
[2024-01-05] MEDS: Ascorbic Acid 500 MG Tablet PO (08:08)
[2024-01-05] MEDS: Petrolatum 33% Tube 1 APPLIC TOPICAL ×2 (08:09→21:22)
[2024-01-05] MEDS: Pantoprazole Sodium 40 MG Tablet PO (08:09)
[2024-01-05] MEDS: Insulin Glargine-YFGN 100 UNIT/ML Pen 20 UNIT SC ×2 (08:09→21:17)
[2024-01-05] MEDS: Cholecalciferol (Vit D3) 125 MCG CAPSULE (5,000 UNITS) PO (08:10)
--- NOTE | 2024-01-05 09:19 | NURSING ---
Candy Department Manager Note; MDS for 01/04/2024 Complete
[2024-01-05 09:29] LABS: Bedside Glucose 160 mg/dL (74-106)
[2024-01-05 11:53] LABS: Bedside Glucose 162 mg/dL (74-106)
[2024-01-05] MEDS: Tuberculin,Purif.prot.deriv. 50 TU/ML Vial 0.100000000000000006 ML ID (12:01)
--- NOTE | 2024-01-05 12:13 | US_ITS ---
STUDY: THYROID ULTRASOUND REASON FOR EXAM: Male, 68 years old. Palpably enlarged thyroid TECHNIQUE: Ultrasound evaluation of the thyroid was performed with real-time and static conn-scale imaging. COMPARISON: None. FINDINGS: RIGHT LOBE: The right lobe of the thyroid gland measures 5.5 x 2.5 x 2.1 cm. There is a heterogeneous echotexture. There is a isoechoic to thyroid solid 1.07 x 1.1 x 1.2 cm nodule in the mid right thyroid lobe. This nodule is solid or almost completely solid, hyperechoic or isoechoic, [id number], smoothly marginated and contains no echogenic foci. TI-RADS points: 3. TI-RADS category: TR3. This nodule is mildly suspicious but no FNA or follow-up is necessary given the small size of this nodule. This nodule is mixed cystic and solid, hypoechoic, lzjap-fcjv-eleg, smoothly marginated and contains no echogenic foci. TI-RADS points: 3. TI-RADS category: TR3. This nodule is mildly suspicious but no FNA or follow-up is necessary given the small size of this nodule.There is a solid/cystic 0.6 x 0.6 x 0.6 cm nodule and a simple 0.6 cm cyst. No specific follow-up needed for the cyst. LEFT LOBE: The left lobe of the thyroid gland measures 5.2 x 2.6 x 2.3 cm. There is a heterogeneous echotexture. There is a solid hypoechoic 1.9 x 1.5 x 1.7 cm nodule in the mid left thyroid. This nodule is solid or almost completely solid, hypoechoic, bycsg-dzyn-peul, smoothly marginated and contains no echogenic foci. TI-RADS points: 4. TI-RADS category: TR4. This nodule is moderately suspicious. Recommend FNA evaluation. There is a complex solid/cystic 0.6 x 0.6 x 0.6 cm nodule.This nodule is solid or almost completely solid, hyperechoic or isoechoic, jbmss-ofbu-gggd, smoothly marginated and contains no echogenic foci. TI-RADS points: 3. TI-RADS category: TR3 There is a simple 0.7 x 0.8 x 0.5 cm cyst. This needs no specific follow-up ISTHMUS: The isthmus measures 10 mm. The regional lymph nodes are normal. Patient also complains of swelling inferior to the thyroid, hoisting machine operator notes some hyperechoic tissue but no discrete lesion nodule or fluid collection. US/Thyroid IMPRESSION: Enlarged heterogeneous thyroid with bilateral nodules, majority of them do not meet specific follow-up. However there is a concerning 1.9 x 1.5 x 1.7 cm solid hypoechoic nodule in the mid left thyroid lobe with FNA recommended Electronically Signed: Leon Mallory MD at 9:17 EST ,
[2024-01-05 12:45] LABS: T3 Uptake 37 % (33-40); T4 Free Direct 0.91 ng/dL (0.76-1.46); Thyroid Stim Hormone (TSH) 1.06 uIU/mL (0.358-3.74)
[2024-01-05 14:00] VITALS: BP 156/72; PULSE 92; RESP 17; TEMP 35.9; O2SAT 98
--- NOTE | 2024-01-05 15:58 | NURSING ---
Patient reported bulging area to upper sternum this AM. Area is not red but is raised and firm with swelling around site. Dr. Degroot made aware and NO for thyroid US and labs. Midline also removed today and patient tolerated well. Tip intact and petroleum, gauze and sterile dressing applied. No redness, draining or pain to insertion site.
[2024-01-05 17:31] LABS: Bedside Glucose 164 mg/dL (74-106)
[2024-01-05] MEDS: Tamsulosin HCl 0.4 MG Capsule 0.400000000000000022 MG PO (17:46)
[2024-01-05] MEDS: Latanoprost 0.005% 1 Bottle 1 DRP EACH EYE (21:23)
[2024-01-05] MEDS: Fenofibrate 145 MG Tablet PO (21:25)
[2024-01-05] MEDS: MELATONIN 10 MG TABLET PO (21:26)
[2024-01-05] MEDS: Allopurinol 300 MG Tablet PO (21:26)
[2024-01-05 21:52] LABS: Bedside Glucose 116 mg/dL (74-106)
[2024-01-06 06:17] LABS: Bedside Glucose 90 mg/dL (74-106)
[2024-01-06 07:28] LABS: Hematocrit 31.3 % (40-54); Hemoglobin 9.8 g/dL (13.0-16.5)
[2024-01-06 08:05] LABS: Anion Gap 3 (5-15); BUN 32 mg/dL (7-18); BUN/Creat Ratio 37.6 RATIO (10-20); Calcium,Total 8.6 mg/dL (8.5-10.1); Chloride 111 mmol/L (98-107); Creatinine, Serum 0.85 mg/dL (0.70-1.30); EST Glomerular Filtration Rate 95 mL/min (>60); Est Glom Filt Rate - Afr Amer 115 mL/min (>60); Estimated Creatinine Clearance 120.23 ml/min; Glucose 88 mg/dL (74-106); Potassium 4.5 mmol/L (3.5-5.1); Sodium Level 140 mmol/L (136-145)
[2024-01-06] MEDS: Cholecalciferol (Vit D3) 125 MCG CAPSULE (5,000 UNITS) PO (09:05)
[2024-01-06] MEDS: Iron Polysaccharide Complex 150 MG CAPSULE PO (09:05)
[2024-01-06] MEDS: Ascorbic Acid 500 MG Tablet PO (09:05)
[2024-01-06] MEDS: Insulin Lispro 100 UNIT/ML INSULN.PEN 13 UNIT SC ×2 (09:05→17:59)
[2024-01-06] MEDS: Aspirin E.C. 81 MG Tablet PO (09:05)
[2024-01-06] MEDS: Acetaminophen 500 MG Tablet 1000 MG PO ×3 (09:05→22:27)
[2024-01-06] MEDS: Pantoprazole Sodium 40 MG Tablet PO (09:05)
[2024-01-06] MEDS: predniSONE 10 MG Tablet PO (09:05)
[2024-01-06] MEDS: Folic Acid 1 MG Tablet PO (09:06)
[2024-01-06] MEDS: Insulin Glargine-YFGN 100 UNIT/ML Pen 20 UNIT SC ×2 (09:06→22:30)
[2024-01-06] MEDS: Miconazole Nitrate 43 GM Bottle 1 APPLIC TOPICAL ×2 (09:07→22:28)
[2024-01-06] MEDS: Petrolatum 33% Tube 1 APPLIC TOPICAL ×2 (09:07→22:29)
[2024-01-06 12:03] LABS: Bedside Glucose 83 mg/dL (74-106)
[2024-01-06 14:00] VITALS: BP 124/60; PULSE 63; RESP 16; TEMP 36.7; O2SAT 95
[2024-01-06 16:42] LABS: Bedside Glucose 233 mg/dL (74-106)
[2024-01-06] MEDS: Tamsulosin HCl 0.4 MG Capsule 0.400000000000000022 MG PO (17:58)
[2024-01-06 21:37] LABS: Bedside Glucose 183 mg/dL (74-106)
[2024-01-06] MEDS: Fenofibrate 145 MG Tablet PO (22:27)
[2024-01-06] MEDS: MELATONIN 10 MG TABLET PO (22:28)
[2024-01-06] MEDS: Allopurinol 300 MG Tablet PO (22:29)
[2024-01-06] MEDS: Latanoprost 0.005% 1 Bottle 1 DRP EACH EYE (22:29)
[2024-01-07 07:07] LABS: Bedside Glucose 175 mg/dL (74-106)
[2024-01-07] MEDS: Insulin Glargine-YFGN 100 UNIT/ML Pen 20 UNIT SC ×2 (09:12→23:09)
[2024-01-07] MEDS: Acetaminophen 500 MG Tablet 1000 MG PO ×3 (09:13→23:10)
[2024-01-07] MEDS: Folic Acid 1 MG Tablet PO (09:13)
[2024-01-07] MEDS: Ascorbic Acid 500 MG Tablet PO (09:13)
[2024-01-07] MEDS: Cholecalciferol (Vit D3) 125 MCG CAPSULE (5,000 UNITS) PO (09:13)
[2024-01-07] MEDS: Pantoprazole Sodium 40 MG Tablet PO (09:13)
[2024-01-07] MEDS: predniSONE 10 MG Tablet PO (09:13)
[2024-01-07] MEDS: Insulin Lispro 100 UNIT/ML INSULN.PEN 13 UNIT SC ×3 (09:13→17:55)
[2024-01-07] MEDS: Aspirin E.C. 81 MG Tablet PO (09:13)
[2024-01-07] MEDS: Iron Polysaccharide Complex 150 MG CAPSULE PO (09:13)
[2024-01-07] MEDS: Petrolatum 33% Tube 1 APPLIC TOPICAL ×2 (09:14→23:23)
[2024-01-07] MEDS: Miconazole Nitrate 43 GM Bottle 1 APPLIC TOPICAL ×2 (09:15→23:24)
--- NOTE | 2024-01-07 09:50 | NURSING ---
Pt has +3 pitting Edema to BLE pedals and +2 pitting to lower legs. Per Pt takes 1mg of Bumex at home. Dr. Degroot updated and N.O. for 1mg Bumex daily start today. Order read back.
[2024-01-07] MEDS: Bumetanide 0.5 MG Tablet 1 MG PO (11:23)
[2024-01-07 11:45] LABS: Bedside Glucose 132 mg/dL (74-106)
[2024-01-07 14:00] VITALS: BP 144/59; PULSE 77; RESP 16; TEMP 36.3; O2SAT 96
[2024-01-07 16:43] LABS: Bedside Glucose 158 mg/dL (74-106)
[2024-01-07] MEDS: Tamsulosin HCl 0.4 MG Capsule 0.400000000000000022 MG PO (17:13)
[2024-01-07 21:47] LABS: Bedside Glucose 189 mg/dL (74-106)
[2024-01-07 23:00] VITALS: PULSE 62; RESP 16; O2SAT 98
[2024-01-07] MEDS: Allopurinol 300 MG Tablet PO (23:10)
[2024-01-07] MEDS: Latanoprost 0.005% 1 Bottle 1 DRP EACH EYE (23:10)
[2024-01-07] MEDS: Fenofibrate 145 MG Tablet PO (23:10)
[2024-01-07] MEDS: MELATONIN 10 MG TABLET PO (23:11)
[2024-01-08 05:51] LABS: Hematocrit 31.5 % (40-54); Hemoglobin 9.3 g/dL (13.0-16.5)
[2024-01-08 06:27] LABS: Anion Gap 2 (5-15); BUN 35 mg/dL (7-18); BUN/Creat Ratio 32.4 RATIO (10-20); Calcium,Total 8.5 mg/dL (8.5-10.1); Chloride 109 mmol/L (98-107); Creatinine, Serum 1.08 mg/dL (0.70-1.30); EST Glomerular Filtration Rate 72 mL/min (>60); Est Glom Filt Rate - Afr Amer 87 mL/min (>60); Estimated Creatinine Clearance 94.63 ml/min; Glucose 152 mg/dL (74-106); Potassium 4.4 mmol/L (3.5-5.1); Sodium Level 140 mmol/L (136-145)
[2024-01-08 06:41] LABS: Bedside Glucose 143 mg/dL (74-106)
[2024-01-08] MEDS: Pantoprazole Sodium 40 MG Tablet PO (09:17)
[2024-01-08] MEDS: Cholecalciferol (Vit D3) 125 MCG CAPSULE (5,000 UNITS) PO (09:18)
[2024-01-08] MEDS: Acetaminophen 500 MG Tablet 1000 MG PO ×3 (09:18→22:20)
[2024-01-08] MEDS: Ascorbic Acid 500 MG Tablet PO (09:18)
[2024-01-08] MEDS: Aspirin E.C. 81 MG Tablet PO (09:18)
[2024-01-08] MEDS: Iron Polysaccharide Complex 150 MG CAPSULE PO (09:19)
[2024-01-08] MEDS: Miconazole Nitrate 43 GM Bottle 1 APPLIC TOPICAL ×2 (09:19→22:21)
[2024-01-08] MEDS: Petrolatum 33% Tube 1 APPLIC TOPICAL ×2 (09:19→22:22)
[2024-01-08] MEDS: predniSONE 10 MG Tablet PO (09:20)
[2024-01-08] MEDS: Insulin Glargine-YFGN 100 UNIT/ML Pen 20 UNIT SC ×2 (09:21→22:19)
[2024-01-08] MEDS: Bumetanide 0.5 MG Tablet 1 MG PO (09:21)
[2024-01-08] MEDS: Insulin Lispro 100 UNIT/ML INSULN.PEN 13 UNIT SC ×3 (09:22→17:47)
[2024-01-08 09:24] VITALS: BP 116/59; PULSE 75
[2024-01-08 10:00] VITALS: PULSE 92; O2SAT 97; BMI 47.8
[2024-01-08] MEDS: Folic Acid 1 MG Tablet PO (10:43)
[2024-01-08 12:15] LABS: Bedside Glucose 122 mg/dL (74-106)
[2024-01-08 13:37] VITALS: BP 124/52; PULSE 92; RESP 18; TEMP 36.4; O2SAT 97
[2024-01-08 17:28] LABS: Bedside Glucose 160 mg/dL (74-106)
[2024-01-08] MEDS: Tamsulosin HCl 0.4 MG Capsule 0.400000000000000022 MG PO (17:47)
[2024-01-08 21:39] LABS: Bedside Glucose 255 mg/dL (74-106)
[2024-01-08] MEDS: Latanoprost 0.005% 1 Bottle 1 DRP EACH EYE (22:20)
[2024-01-08] MEDS: MELATONIN 10 MG TABLET PO (22:20)
[2024-01-08] MEDS: Allopurinol 300 MG Tablet PO (22:21)
[2024-01-08] MEDS: Fenofibrate 145 MG Tablet PO (22:21)
[2024-01-09 06:05] LABS: Bedside Glucose 120 mg/dL (74-106)
[2024-01-09 08:00] VITALS: BP 133/60; PULSE 87; RESP 18; TEMP 36.4; O2SAT 97
[2024-01-09] MEDS: Acetaminophen 500 MG Tablet 1000 MG PO ×3 (08:08→22:46)
[2024-01-09] MEDS: predniSONE 10 MG Tablet PO (08:09)
[2024-01-09] MEDS: Aspirin E.C. 81 MG Tablet PO (08:09)
[2024-01-09] MEDS: Pantoprazole Sodium 40 MG Tablet PO (08:10)
[2024-01-09] MEDS: Folic Acid 1 MG Tablet PO (08:10)
[2024-01-09] MEDS: Bumetanide 0.5 MG Tablet 1 MG PO (08:10)
[2024-01-09] MEDS: Ascorbic Acid 500 MG Tablet PO (08:10)
[2024-01-09] MEDS: Iron Polysaccharide Complex 150 MG CAPSULE PO (08:11)
[2024-01-09] MEDS: Insulin Lispro 100 UNIT/ML INSULN.PEN 13 UNIT SC ×3 (08:11→17:29)
[2024-01-09] MEDS: Petrolatum 33% Tube 1 APPLIC TOPICAL ×2 (08:12→22:45)
[2024-01-09] MEDS: Miconazole Nitrate 43 GM Bottle 1 APPLIC TOPICAL ×2 (08:12→22:45)
[2024-01-09] MEDS: Cholecalciferol (Vit D3) 125 MCG CAPSULE (5,000 UNITS) PO (08:15)
[2024-01-09] MEDS: Insulin Glargine-YFGN 100 UNIT/ML Pen 20 UNIT SC ×2 (09:32→22:45)
[2024-01-09 10:00] VITALS: BMI 47.1
[2024-01-09 11:15] LABS: Bedside Glucose 158 mg/dL (74-106)
[2024-01-09] MEDS: Tamsulosin HCl 0.4 MG Capsule 0.400000000000000022 MG PO (16:33)
[2024-01-09 17:03] LABS: Bedside Glucose 176 mg/dL (74-106)
[2024-01-09 21:28] LABS: Bedside Glucose 336 mg/dL (74-106)
[2024-01-09] MEDS: Fenofibrate 145 MG Tablet PO (22:46)
[2024-01-09] MEDS: Allopurinol 300 MG Tablet PO (22:46)
[2024-01-09] MEDS: MELATONIN 10 MG TABLET PO (22:46)
[2024-01-09] MEDS: Latanoprost 0.005% 1 Bottle 1 DRP EACH EYE (22:46)
[2024-01-10 06:07] LABS: Bedside Glucose 160 mg/dL (74-106)
[2024-01-10] MEDS: Insulin Lispro 100 UNIT/ML INSULN.PEN 13 UNIT SC ×3 (08:40→17:38)
[2024-01-10] MEDS: Insulin Glargine-YFGN 100 UNIT/ML Pen 20 UNIT SC ×2 (08:40→21:15)
[2024-01-10] MEDS: Folic Acid 1 MG Tablet PO (08:40)
[2024-01-10] MEDS: Iron Polysaccharide Complex 150 MG CAPSULE PO (08:40)
[2024-01-10] MEDS: Cholecalciferol (Vit D3) 125 MCG CAPSULE (5,000 UNITS) PO (08:41)
[2024-01-10] MEDS: Ascorbic Acid 500 MG Tablet PO (08:41)
[2024-01-10] MEDS: Pantoprazole Sodium 40 MG Tablet PO (08:41)
[2024-01-10] MEDS: Acetaminophen 500 MG Tablet 1000 MG PO ×3 (08:41→21:16)
[2024-01-10] MEDS: Bumetanide 0.5 MG Tablet 1 MG PO (08:41)
[2024-01-10] MEDS: Aspirin E.C. 81 MG Tablet PO (08:41)
[2024-01-10] MEDS: Petrolatum 33% Tube 1 APPLIC TOPICAL ×2 (08:42→21:18)
[2024-01-10] MEDS: Miconazole Nitrate 43 GM Bottle 1 APPLIC TOPICAL ×2 (08:42→21:18)
[2024-01-10 09:35] VITALS: BMI 46.9
[2024-01-10 11:17] VITALS: BP 121/51; PULSE 69; RESP 18; TEMP 36.4; O2SAT 98
[2024-01-10 11:19] LABS: Bedside Glucose 129 mg/dL (74-106)
--- NOTE | 2024-01-10 12:17 | MDS.RN ---
Information for the mds was obtained from review of the clinical record, interview of resident, staff, and direct observation of resident's care.
--- NOTE | 2024-01-10 15:27 | CHAPLAIN ---
Type of Pastoral Visit ___ Initial Visit _x__ Follow-up Visit ___ On-call Visit ___ General Patient Visit ___ Spiritual Assessment ___ Family Conference ___ Bereavement ___ Rapid Response ___ Code Blue ___ Other (describe below) Pastoral Care Referral From _x__ Patient _x__ Family ___ Nurse ___ Physician ___ Employee Services Manager ___ Musical Performer ___ Other (describe below) Sacrament/Intervention _x__ Active listening ___ Anointing ___ Alevism ___ Bereavement ___ Communion ___ Sharee exploration ___ _x__ Life review _x__ Prayer ___ Reconciliation ___ Sacrament of Sick _x__ Supportive presence ___ Wedding ___ Other (describe below) Pastoral Comments on this follow up visit discovered that today is the patient's birthday; talked about his birthday and how family has celebrated; pt is talkative about his TCU experience and his perspectives on getting well; pt has a daughter in the room with him; pt states he is working his best to make the improvements needed to go home; pt welcomes the presence and prayers of this rouge sifter and miller
[2024-01-10 16:26] LABS: Bedside Glucose 159 mg/dL (74-106)
[2024-01-10] MEDS: Tamsulosin HCl 0.4 MG Capsule 0.400000000000000022 MG PO (17:39)
[2024-01-10] MEDS: Allopurinol 300 MG Tablet PO (21:17)
[2024-01-10] MEDS: Fenofibrate 145 MG Tablet PO (21:17)
[2024-01-10] MEDS: Latanoprost 0.005% 1 Bottle 1 DRP EACH EYE (21:17)
[2024-01-10] MEDS: MELATONIN 10 MG TABLET PO (21:18)
[2024-01-10 21:44] LABS: Bedside Glucose 203 mg/dL (74-106)
[2024-01-11 06:18] LABS: Bedside Glucose 118 mg/dL (74-106)
[2024-01-11] MEDS: Insulin Lispro 100 UNIT/ML INSULN.PEN 13 UNIT SC ×3 (08:02→17:38)
[2024-01-11] MEDS: Aspirin E.C. 81 MG Tablet PO (08:03)
[2024-01-11] MEDS: Insulin Glargine-YFGN 100 UNIT/ML Pen 20 UNIT SC ×2 (08:03→21:40)
[2024-01-11] MEDS: Iron Polysaccharide Complex 150 MG CAPSULE PO (08:03)
[2024-01-11] MEDS: Acetaminophen 500 MG Tablet 1000 MG PO ×3 (08:03→21:42)
[2024-01-11] MEDS: Pantoprazole Sodium 40 MG Tablet PO (08:04)
[2024-01-11] MEDS: Folic Acid 1 MG Tablet PO (08:04)
[2024-01-11] MEDS: Ascorbic Acid 500 MG Tablet PO (08:04)
[2024-01-11] MEDS: Miconazole Nitrate 43 GM Bottle 1 APPLIC TOPICAL ×2 (08:04→21:42)
[2024-01-11] MEDS: Cholecalciferol (Vit D3) 125 MCG CAPSULE (5,000 UNITS) PO (08:04)
[2024-01-11] MEDS: Bumetanide 0.5 MG Tablet 1 MG PO (08:04)
[2024-01-11] MEDS: Petrolatum 33% Tube 1 APPLIC TOPICAL ×2 (08:05→21:43)
[2024-01-11 08:12] VITALS: BP 134/62; PULSE 86
[2024-01-11 10:00] VITALS: BMI 47.4
[2024-01-11 12:05] VITALS: BP 122/66; PULSE 84; RESP 16; TEMP 36.7; O2SAT 98
[2024-01-11 12:19] LABS: Bedside Glucose 113 mg/dL (74-106)
[2024-01-11 17:18] LABS: Bedside Glucose 114 mg/dL (74-106)
[2024-01-11] MEDS: Tamsulosin HCl 0.4 MG Capsule 0.400000000000000022 MG PO (17:38)
[2024-01-11] MEDS: Latanoprost 0.005% 1 Bottle 1 DRP EACH EYE (21:43)
[2024-01-11] MEDS: Fenofibrate 145 MG Tablet PO (21:43)
[2024-01-11] MEDS: MELATONIN 10 MG TABLET PO (21:43)
[2024-01-11] MEDS: Allopurinol 300 MG Tablet PO (21:44)
[2024-01-11 21:56] LABS: Bedside Glucose 130 mg/dL (74-106)
[2024-01-12 05:50] LABS: Absolute Lymphocyte Count 1.28 X10^3/uL (0.83-4.51); Basophil# 0.03 X10^3/uL; Basophil% 0.4 % (0-1); Eosinophils% 2.7 % (0-5); Hematocrit 30.7 % (40-54); Hemoglobin 9.4 g/dL (13.0-16.5); Lymphocyte # 1.28 X10^3/ul (0.83-4.51); Lymphocyte % 17.6 % (19-41); Mean Corp Hgb Conc 30.6 g/dL (32-36); Mean Corpuscular Volume 104.4 fL (80-94); Mean Platelet Vol. 8.2 fl (6.2-12.0); Monocyte# 0.72 X10^3/uL; Monocyte% 9.9 % (0-10); NRBC Flagged by Analyzer 0 % (0-5); Neutrophil # 4.99 X10^3/uL (2.7-7.7); Neutrophil % 68.4 % (47-70); Platelet Count 250 K/mm3 (150-450); RBC Distribution Width CV 16.7 % (11.6-14.6); RBC Distribution Width SD 63.9 fl (35.1-43.9); Red Blood Count 2.94 M/mm3 (4.6-6.2); White Blood Count 7.3 K/mm3 (4.4-11.0)
[2024-01-12 06:20] LABS: Anion Gap 2 (5-15); BUN 33 mg/dL (7-18); BUN/Creat Ratio 31.4 RATIO (10-20); Calcium,Total 8.5 mg/dL (8.5-10.1); Chloride 107 mmol/L (98-107); Creatinine, Serum 1.05 mg/dL (0.70-1.30); EST Glomerular Filtration Rate 74 mL/min (>60); Est Glom Filt Rate - Afr Amer 90 mL/min (>60); Estimated Creatinine Clearance 96.07 ml/min; Glucose 102 mg/dL (74-106); Potassium 3.9 mmol/L (3.5-5.1); Sodium Level 140 mmol/L (136-145)
[2024-01-12 06:40] LABS: Bedside Glucose 105 mg/dL (74-106)
[2024-01-12] MEDS: Acetaminophen 500 MG Tablet 1000 MG PO ×2 (09:13→23:16)
[2024-01-12] MEDS: Folic Acid 1 MG Tablet PO (09:13)
[2024-01-12] MEDS: Cholecalciferol (Vit D3) 125 MCG CAPSULE (5,000 UNITS) PO (09:14)
[2024-01-12] MEDS: Iron Polysaccharide Complex 150 MG CAPSULE PO (09:14)
[2024-01-12] MEDS: Ascorbic Acid 500 MG Tablet PO (09:15)
[2024-01-12] MEDS: Aspirin E.C. 81 MG Tablet PO (09:16)
[2024-01-12] MEDS: Bumetanide 0.5 MG Tablet 1 MG PO (10:13)
[2024-01-12 10:15] VITALS: RESP 18
[2024-01-12] MEDS: Miconazole Nitrate 43 GM Bottle 1 APPLIC TOPICAL ×2 (10:15→21:27)
[2024-01-12] MEDS: Petrolatum 33% Tube 1 APPLIC TOPICAL ×2 (10:17→21:33)
[2024-01-12] MEDS: Insulin Glargine-YFGN 100 UNIT/ML Pen 20 UNIT SC ×2 (10:17→21:27)
[2024-01-12] MEDS: Pantoprazole Sodium 40 MG Tablet PO (10:17)
[2024-01-12] MEDS: Insulin Lispro 100 UNIT/ML INSULN.PEN 10 UNIT SC ×2 (10:19→17:14)
[2024-01-12 11:41] LABS: Bedside Glucose 180 mg/dL (74-106)
[2024-01-12 14:00] VITALS: BP 123/57; PULSE 82; RESP 18; TEMP 36.9; O2SAT 99
[2024-01-12 16:44] LABS: Bedside Glucose 297 mg/dL (74-106)
[2024-01-12] MEDS: Tamsulosin HCl 0.4 MG Capsule 0.400000000000000022 MG PO (17:11)
[2024-01-12] MEDS: Allopurinol 300 MG Tablet PO (21:26)
[2024-01-12] MEDS: MELATONIN 10 MG TABLET PO (21:26)
[2024-01-12] MEDS: Fenofibrate 145 MG Tablet PO (21:26)
[2024-01-12] MEDS: Latanoprost 0.005% 1 Bottle 1 DRP EACH EYE (21:27)
[2024-01-12 21:39] LABS: Bedside Glucose 182 mg/dL (74-106)
[2024-01-13 06:27] LABS: Bedside Glucose 87 mg/dL (74-106)
[2024-01-13 08:06] VITALS: BP 129/60; PULSE 86; RESP 16; TEMP 36.8; O2SAT 96
[2024-01-13] MEDS: Insulin Lispro 100 UNIT/ML INSULN.PEN 10 UNIT SC ×3 (08:10→18:10)
[2024-01-13] MEDS: Folic Acid 1 MG Tablet PO (08:11)
[2024-01-13] MEDS: Acetaminophen 500 MG Tablet 1000 MG PO ×3 (08:11→21:02)
[2024-01-13] MEDS: Iron Polysaccharide Complex 150 MG CAPSULE PO (08:11)
[2024-01-13] MEDS: Bumetanide 0.5 MG Tablet 1 MG PO (08:12)
[2024-01-13] MEDS: Ascorbic Acid 500 MG Tablet PO (08:12)
[2024-01-13] MEDS: Miconazole Nitrate 43 GM Bottle 1 APPLIC TOPICAL ×2 (08:12→21:03)
[2024-01-13] MEDS: Insulin Glargine-YFGN 100 UNIT/ML Pen 20 UNIT SC (08:13)
[2024-01-13] MEDS: Aspirin E.C. 81 MG Tablet PO (08:13)
[2024-01-13] MEDS: Pantoprazole Sodium 40 MG Tablet PO (08:14)
[2024-01-13] MEDS: Cholecalciferol (Vit D3) 125 MCG CAPSULE (5,000 UNITS) PO (08:14)
[2024-01-13 11:18] LABS: Bedside Glucose 141 mg/dL (74-106)
[2024-01-13 16:30] LABS: Bedside Glucose 183 mg/dL (74-106)
[2024-01-13] MEDS: Tamsulosin HCl 0.4 MG Capsule 0.400000000000000022 MG PO (18:10)
[2024-01-13 21:00] VITALS: PULSE 84; RESP 16; O2SAT 99
[2024-01-13] MEDS: Latanoprost 0.005% 1 Bottle 1 DRP EACH EYE (21:01)
[2024-01-13] MEDS: Fenofibrate 145 MG Tablet PO (21:02)
[2024-01-13] MEDS: MELATONIN 10 MG TABLET PO (21:02)
[2024-01-13] MEDS: Allopurinol 300 MG Tablet PO (21:02)
[2024-01-13] MEDS: Insulin Glargine-YFGN 100 UNIT/ML Pen 15 UNIT SC (21:02)
[2024-01-13] MEDS: Petrolatum 33% Tube 1 APPLIC TOPICAL (21:03)
[2024-01-13 21:45] LABS: Bedside Glucose 138 mg/dL (74-106)
[2024-01-14 06:03] LABS: Hematocrit 31.8 % (40-54); Hemoglobin 9.9 g/dL (13.0-16.5)
[2024-01-14 06:17] LABS: Bedside Glucose 158 mg/dL (74-106)
[2024-01-14 08:05] VITALS: BP 138/72; PULSE 75; RESP 16; TEMP 36.3; O2SAT 95
[2024-01-14] MEDS: Insulin Lispro 100 UNIT/ML INSULN.PEN 10 UNIT SC ×3 (08:08→17:56)
[2024-01-14] MEDS: Iron Polysaccharide Complex 150 MG CAPSULE PO (08:08)
[2024-01-14] MEDS: Folic Acid 1 MG Tablet PO (08:09)
[2024-01-14] MEDS: Acetaminophen 500 MG Tablet 1000 MG PO ×3 (08:09→22:08)
[2024-01-14] MEDS: Ascorbic Acid 500 MG Tablet PO (08:09)
[2024-01-14] MEDS: Bumetanide 0.5 MG Tablet 1 MG PO (08:09)
[2024-01-14] MEDS: Aspirin E.C. 81 MG Tablet PO (08:10)
[2024-01-14] MEDS: Insulin Glargine-YFGN 100 UNIT/ML Pen 15 UNIT SC ×2 (08:10→22:07)
[2024-01-14] MEDS: Petrolatum 33% Tube 1 APPLIC TOPICAL ×2 (08:11→22:08)
[2024-01-14] MEDS: Cholecalciferol (Vit D3) 125 MCG CAPSULE (5,000 UNITS) PO (08:11)
[2024-01-14] MEDS: Pantoprazole Sodium 40 MG Tablet PO (08:11)
[2024-01-14] MEDS: Miconazole Nitrate 43 GM Bottle 1 APPLIC TOPICAL ×2 (08:12→22:09)
[2024-01-14 10:00] VITALS: BMI 47.0
[2024-01-14 11:13] LABS: Bedside Glucose 170 mg/dL (74-106)
[2024-01-14 17:01] LABS: Bedside Glucose 231 mg/dL (74-106)
[2024-01-14] MEDS: Tamsulosin HCl 0.4 MG Capsule 0.400000000000000022 MG PO (17:56)
[2024-01-14 21:37] LABS: Bedside Glucose 274 mg/dL (74-106)
[2024-01-14] MEDS: MELATONIN 10 MG TABLET PO (22:08)
[2024-01-14] MEDS: Latanoprost 0.005% 1 Bottle 1 DRP EACH EYE (22:08)
[2024-01-14] MEDS: Allopurinol 300 MG Tablet PO (22:08)
[2024-01-14] MEDS: Fenofibrate 145 MG Tablet PO (22:08)
[2024-01-15 06:01] LABS: Hemoglobin 9.7 g/dL (13.0-16.5)
[2024-01-15 06:10] LABS: Bedside Glucose 152 mg/dL (74-106)
[2024-01-15] MEDS: Insulin Lispro 100 UNIT/ML INSULN.PEN 10 UNIT SC ×3 (08:45→17:59)
[2024-01-15] MEDS: Folic Acid 1 MG Tablet PO (08:46)
[2024-01-15] MEDS: Iron Polysaccharide Complex 150 MG CAPSULE PO (08:46)
[2024-01-15] MEDS: Ascorbic Acid 500 MG Tablet PO (08:46)
[2024-01-15] MEDS: Bumetanide 0.5 MG Tablet 1 MG PO (08:46)
[2024-01-15] MEDS: Insulin Glargine-YFGN 100 UNIT/ML Pen 15 UNIT SC ×2 (08:47→21:35)
[2024-01-15] MEDS: Pantoprazole Sodium 40 MG Tablet PO (08:47)
[2024-01-15] MEDS: Aspirin E.C. 81 MG Tablet PO (08:47)
[2024-01-15] MEDS: Petrolatum 33% Tube 1 APPLIC TOPICAL ×2 (08:47→21:36)
[2024-01-15] MEDS: Cholecalciferol (Vit D3) 125 MCG CAPSULE (5,000 UNITS) PO (08:47)
[2024-01-15] MEDS: Acetaminophen 500 MG Tablet 1000 MG PO ×3 (08:55→21:37)
[2024-01-15] MEDS: Miconazole Nitrate 43 GM Bottle 1 APPLIC TOPICAL ×2 (08:56→21:38)
[2024-01-15 11:21] LABS: Bedside Glucose 169 mg/dL (74-106)
[2024-01-15 13:30] VITALS: BP 116/54; PULSE 80; RESP 18; TEMP 36.4; O2SAT 95
[2024-01-15 17:41] LABS: Bedside Glucose 169 mg/dL (74-106)
[2024-01-15] MEDS: Tamsulosin HCl 0.4 MG Capsule 0.400000000000000022 MG PO (18:00)
[2024-01-15 21:32] LABS: Bedside Glucose 193 mg/dL (74-106)
[2024-01-15] MEDS: Latanoprost 0.005% 1 Bottle 1 DRP EACH EYE (21:36)
[2024-01-15] MEDS: MELATONIN 10 MG TABLET PO (21:37)
[2024-01-15] MEDS: Allopurinol 300 MG Tablet PO (21:37)
[2024-01-15] MEDS: Fenofibrate 145 MG Tablet PO (21:37)
[2024-01-15 22:45] VITALS: RESP 16
[2024-01-16 06:05] LABS: Hematocrit 31.1 % (40-54); Hemoglobin 9.6 g/dL (13.0-16.5)
[2024-01-16 06:20] LABS: Bedside Glucose 186 mg/dL (74-106)
[2024-01-16] MEDS: Insulin Lispro 100 UNIT/ML INSULN.PEN 10 UNIT SC ×3 (08:31→17:58)
[2024-01-16] MEDS: Iron Polysaccharide Complex 150 MG CAPSULE PO (08:32)
[2024-01-16] MEDS: Folic Acid 1 MG Tablet PO (08:32)
[2024-01-16] MEDS: Acetaminophen 500 MG Tablet 1000 MG PO ×3 (08:32→21:37)
[2024-01-16] MEDS: Ascorbic Acid 500 MG Tablet PO (08:33)
[2024-01-16] MEDS: Insulin Glargine-YFGN 100 UNIT/ML Pen 15 UNIT SC ×2 (08:33→21:35)
[2024-01-16] MEDS: Bumetanide 0.5 MG Tablet 1 MG PO (08:33)
[2024-01-16] MEDS: Aspirin E.C. 81 MG Tablet PO (08:33)
[2024-01-16] MEDS: Pantoprazole Sodium 40 MG Tablet PO (08:34)
[2024-01-16] MEDS: Cholecalciferol (Vit D3) 125 MCG CAPSULE (5,000 UNITS) PO (08:34)
[2024-01-16 09:14] VITALS: BMI 47.3
[2024-01-16 10:00] VITALS: BMI 47.3
--- NOTE | 2024-01-16 10:13 | NURSING ---
Addendum entered by Pratima Preston 01/16/24 12:41: Documentation on wrong patient. Original Note: updated that patient is in ED for low BP and low SPO2 for testing. denies any questions at this time. Transferred her call down to ED to talk to patient if able.
[2024-01-16 11:17] LABS: Bedside Glucose 154 mg/dL (74-106)
[2024-01-16 14:00] VITALS: BP 141/60; PULSE 83; RESP 18; TEMP 36.2; O2SAT 94
--- NOTE | 2024-01-16 16:36 | CASEMGMT ---
Social Work IDT discussed patient's progress and pt is improving well. Pt is adlib and therapy to monitor for the next week, then if pt does well, IDT to set DC date for pt to return home alone. PARAG received email from dtr requesting plans for DC and noting she will be out of town from January 25-. PARAG explained above and offered for dtr/pt to set DC date to convenience of schedule. Dtr to discuss with pt but will plan for a date the week of January 28. PARAG will continue to follow. Latia Sterling, [employer]
[2024-01-16 16:51] LABS: Bedside Glucose 134 mg/dL (74-106)
--- NOTE | 2024-01-16 17:13 | US_ITS ---
EXAM: US LEFT UPPER EXTREMITY NON-VASCULAR, COMPLETE CLINICAL INDICATION: Left upper extremity mass. TECHNIQUE: Real-time ultrasound scan of the left upper extremity with image documentation. COMPARISON: No relevant prior studies available. FINDINGS: SOFT TISSUES: There is an ill-defined echogenic focus in the subcutaneous fat that measures 2.3 x 0.8 x 3.5 cm. There is no distention or discrete mass identified. No foreign body. US/Ext Non Vasc Limited/Soft Tiss IMPRESSION: Ill-defined echogenic focus in the subcutaneous fat possibly representing a lipoma. If indicated further evaluation with CT or MRI may be beneficial. Electronically Signed: Froylan Lucas MD at 21:07 EST ,
[2024-01-16] MEDS: Tamsulosin HCl 0.4 MG Capsule 0.400000000000000022 MG PO (18:00)
[2024-01-16 21:25] LABS: Bedside Glucose 128 mg/dL (74-106)
[2024-01-16] MEDS: Latanoprost 0.005% 1 Bottle 1 DRP EACH EYE (21:34)
[2024-01-16] MEDS: Allopurinol 300 MG Tablet PO (21:36)
[2024-01-16] MEDS: MELATONIN 10 MG TABLET PO (21:36)
[2024-01-16] MEDS: Fenofibrate 145 MG Tablet PO (21:37)
[2024-01-16] MEDS: Petrolatum 33% Tube 1 APPLIC TOPICAL (21:38)
[2024-01-17] MEDS: Acetaminophen 500 MG Tablet 1000 MG PO ×3 (09:12→22:05)
[2024-01-17] MEDS: Insulin Lispro 100 UNIT/ML INSULN.PEN 10 UNIT SC ×3 (09:13→17:13)
[2024-01-17] MEDS: Insulin Glargine-YFGN 100 UNIT/ML Pen 15 UNIT SC (09:14)
[2024-01-17] MEDS: Ascorbic Acid 500 MG Tablet PO (09:14)
[2024-01-17] MEDS: Iron Polysaccharide Complex 150 MG CAPSULE PO (09:14)
[2024-01-17] MEDS: Folic Acid 1 MG Tablet PO (09:14)
[2024-01-17] MEDS: Cholecalciferol (Vit D3) 125 MCG CAPSULE (5,000 UNITS) PO (09:15)
[2024-01-17] MEDS: Aspirin E.C. 81 MG Tablet PO (09:15)
[2024-01-17] MEDS: Pantoprazole Sodium 40 MG Tablet PO (09:15)
[2024-01-17] MEDS: Bumetanide 0.5 MG Tablet 1 MG PO (09:15)
[2024-01-17 09:22] VITALS: BP 110/53; PULSE 83; RESP 18; TEMP 36.6; O2SAT 94
[2024-01-17 09:23] VITALS: BMI 47.1
[2024-01-17 09:45] LABS: Bedside Glucose 113 mg/dL (74-106)
--- NOTE | 2024-01-17 09:55 | CASEMGMT ---
Addendum entered by Latia Sterling 01/19/24 14:04: Dtr requested pt make selection as she has no preference. PARAG provided pt with options, quality and resource data, and pt chose [id number] based on location. SW updated HHC agencies via [employer] and send [facility] orders. Addendum entered by Latia Sterling 01/19/24 08:49: Pt needing a bariatric FWW. Referral sent to [facility] via [employer] [facility] sent follow up email to dtr to inquire about HHC preference. Addendum entered by Latia Sterling 01/17/24 12:18: Out of 17 referred to HHC agencies, 4 have accept pt: [id number], [facility], [facility], and [facility]. [facility]AG sent [employer] Link with the 4 agencies with their quality and resource data via email to dtr to choose preference. Will continue to follow. Original Note: Social Work Received email from dtr requesting DC 01/28. IDT agreeable. PARAG provided internet resources for pt's county for home delivered meals, per dtr's initial request. Dtr is setting up a medical alert system. Dtr requesting skilled HHC. SW offered to send referrals to are agencies that are INN with pt's insurance as [place] county, and present pt/dtr with accepting agencies. Dtr agreeable. No DME needs. Dtr to transport. PARAG sent referrals to several skilled HHC agencies via [employer] Plan: DC home alone 01/28, [facility] PT/OT/SN Latia Sterling, PUBLICATION EDITOR RESEARCH CHIEF ENGINEER
[2024-01-17 12:13] LABS: Bedside Glucose 141 mg/dL (74-106)
[2024-01-17 16:27] LABS: Bedside Glucose 116 mg/dL (74-106)
[2024-01-17] MEDS: Tamsulosin HCl 0.4 MG Capsule 0.400000000000000022 MG PO (17:13)
--- NOTE | 2024-01-17 19:47 | DS.PCM_ITS ---
Providers Date of Admission: 12/28/23 Primary Care Physician: BIJU ALEXANDER Consultations 12/29/23 07:40 Consult: Infectious Disease Routine Consulting Provider: Steve Camargo Reason for Consult: Group B strep bacteremia, source unknown. EMERGENT Consult: No MD Notified: Yes Date Notified: 12/29/23 Time Notified: 07:40 Method of Notification: Text Reason For Visit: SEPSIS Diagnosis Discharge Diagnosis (1) Bacteremia due to group B Streptococcus: Status: Acute Code(s): R78.81 - Bacteremia; B95.1 - Streptococcus, group B, as the cause of diseases classified elsewhere Plan 68 year old male with below past medical hospitalized for Sepsis, Group B strep bacteremia, complicated by acute delirium, rhabdomyolysis, metabolic acidosis, admitted to TCU with debility, here for rehabilitation, strengthening, intravenous antibiotics, prior to discharge home alone. * Debility - PT/OT. * Pain - Tylenol 1000mg q6 prn pain (1-10), Tylenol 1000mg 0800, 2200. * Bowel - senna/colace 1 tablet bid prn, Magnesium citrate 300ml daily prn. * Adult immunization - Administer pneumonia vaccine, covid vaccine, flu vaccine as appropriate. * DVT prophylaxis - Lovenox 30mg sc daily. * Gout - Allopurinol 300mg qhs. * CV prophylaxis - Aspirin 81mg daily. * Edema - Bumex 2mg daily. * Hyperphosphatemia - Phoslo 667mg bidcm. * Group B strep bacteremia/sepsis - Ceftriaxone 2gm iv q24 thru 01/03/2024, Consult Dr. Camargo. * Vitamin D deficiency - D3 125mcg daily. * Hyperlipidemia - Fenofibrate 145mg qhs. * Folate deficiency - Foilc acid 1mg daily. * Diabetes Mellitus II - Pioglitazone 45mg daily, Glargine 18 units bid, Glucagon 1mg im x 1 prn. * Iron deficiency anemia - Ferrex 150mg daily, Vitamin C 500mg daily. * Glaucoma - Latanoprost 1gtt ou qhs. * Tinea Corporis - Miconazole topical bid. * GERD - Pantoprazole 40mg daily. * Skin irritation - Eucerin topical bid. * Metabolic acidosis - Sodium bicarb 650mg daily. Medications at Discharge Home Medications aspirin 81 mg tablet,delayed release 81 mg PO DAILY heart 12/28/23 cholecalciferol (vitamin D3) 125 mcg (5,000 unit) capsule 125 mcg PO DAILY supplement 12/28/23 fenofibrate 150 mg capsule 145 mg PO QHS cholesterol 12/28/23 folic acid 1 mg tablet 1 mg PO DAILY supplement 12/28/23 insulin glargine 100 unit/mL (3 mL) subcutaneous pen 18 unit subcut BID blood sugar 12/28/23 latanoprost 0.005 % eye drops 1 drp EACH EYE QHS eyes 12/28/23 miconazole nitrate 2 % topical powder 1 applic topical BID antifungal 12/28/23 acetaminophen 500 mg tablet 1,000 mg (2 x 500 mg) PO 0800,2200 #0 tabs 01/17/24 acetaminophen 500 mg tablet 1,000 mg (2 x 500 mg) PO Q6H PRN Pain Score 1-10 #0 tabs 01/17/24 allopurinol 300 mg tablet 300 mg PO QHS 30 days #30 tabs 01/17/24 ascorbic acid (vitamin C) 500 mg tablet 500 mg PO BREAKFAST 30 days #30 tabs 01/17/24 bumetanide 0.5 mg tablet 1 mg (2 x 0.5 mg) PO DAILY #0 tabs 01/17/24 insulin lispro 100 unit/mL subcutaneous pen (Humalog KwikPen (U-100) Insulin) 10 unit (0.1 mL) subcut TIDAC 30 days #9 mL 01/17/24 pantoprazole 40 mg tablet,delayed release 40 mg PO DAILY 30 days #30 tabs 01/17/24 polysaccharide iron complex 150 mg iron capsule (Ferrex) 150 mg PO DAILYCM 30 days #30 caps 01/17/24 tamsulosin 0.4 mg capsule 0.4 mg PO DAILY@1730 30 days #30 caps 01/17/24 Hospital Course Operations None Procedures None Summary of Care Provided Minutes Spent on Discharge: 35 Hospital Course: 68 year old male with below past medical hospitalized for Sepsis, Group B strep bacteremia, complicated by acute delirium, rhabdomyolysis, metabolic acidosis, admitted to TCU with debility, here for rehabilitation, strengthening, intravenous antibiotics, prior to discharge home alone. 12/29/2023 MRI left shoulder: IMPRESSION: 1. Small amount of fluid in the subacromial subdeltoid is nonspecific and be seen with bursitis in the appropriate clinical setting. 2. Prominent subacromial enthesophyte anteriorly. 3. Moderate hypertrophic degenerative changes of the acromioclavicular joint with mild to moderate mass effect on the underlying soft tissues. 4. No definite rotator cuff or labral tear. 01/05/2024 Thyroid ultrasound: IMPRESSION: Enlarged heterogeneous thyroid with bilateral nodules, majority of them do not meet specific follow-up. However there is a concerning 1.9 x 1.5 x 1.7 cm solid hypoechoic nodule in the mid left thyroid lobe with FNA recommended 01/23/2024 Left thyroid nodule biopsy. 01/16/2024 Soft tissue ultrasound: IMPRESSION: Ill-defined echogenic focus in the subcutaneous fat possibly representing a lipoma. If indicated further evaluation with CT or MRI may be beneficial. Located left posterior upper extremity, asymptomatic, further imaging not ordered. Discharge home alone 01/29/2024, [facility] PT/OT/SN. Physical Exam Const alert General Appearance: cooperative HEENT normocephalic Eyes PERRL and EOMs intact bilaterally Neck supple, no JVD and no carotid bruits Resp normal respiratory effort, normal air movement and clear to auscultation bilaterally Cardio regular rate and regular rhythm GI normal to inspection, nondistended, normoactive bowel sounds, non-tender and no n-distended Extremity normal capillary refill General Extremity: Negative for edema Skin no rashes or lesions noted General Skin Exam: no breakdown Psych affect normal Appearance: appropriate Medical Records Data Medical Nutrition Assessment Dietitian: Malnutrition Criteria Met Start: 12/29/23 10:35 Freq: Status: Active Protocol: Document 12/29/23 10:35 [facility] (Rec: 12/29/23 10:35 [facility] [id number]) Nutrition Malnutrition Evidence of Malnutrition Exists Yes Malnutrition (moderate): Acute Illness/Injury Evidenced By Weight Loss (Severe),Physical Changes (Moderate) Clinical Problem Acute Disease or Injury Related Malnutrition Etiology related to weakness and debility Signs/Symptoms as evidenced by muscle loss throughout body and 18.75% wt loss in past 3 mo? PO intake good, but has been purposely eating smaller portions. Status Active Problem Recommendation Dietitian Recommendations/Changes Change diet to Regular Sodium Restricted - if issues w/ hypo /hyperglycemia then can change to therapeutic cho controlled diet Weight / BMI Weight Weight: 149.005 kg Body Mass Index (BMI) 47.1 ABG / Lab / Microbiology Data 01/16/24 05:17 01/12/24 05:28 Laboratory: Laboratory Results - last 24 hr 01/16/24 21:05: POC Glucose 128 H 01/17/24 05:48: POC Glucose 113 H 01/17/24 11:26: POC Glucose 141 H 01/17/24 15:56: POC Glucose 116 H Microbiology: Microbiology 01/01/24 07:19 Nasal Secretion SARS-CoV-2 Antigen (Rapid) - Final Radiography Diagnostic Testing: Radiology Impression Soft Tissue Ultrasound 01/16/24 17:13 IMPRESSION: Ill-defined echogenic focus in the subcutaneous fat possibly representing a lipoma. If indicated further evaluation with CT or MRI may be beneficial. Electronically Signed: Froylan Lucas MD at 21:07 [facility] , D/C Instructions Discharge Diet: No restrictions Discharge Activity: Return to Normal Activity, May Shower and Use Walker Weight Bearing Status: Weight bearing as tolerated Call your doctor if you observe: Fever of 101 or Higher, Inability to urinate, Inability to have a bowel movement, Shortness of breath, Dizziness, Fainting spells, Swelling in the ankles, Chest pain and Uncontrolled pain Additional Instructions: Discharge home alone 01/29/2024, [facility] PT/OT/SN. Please Follow Up With: Dr. Ferraro When: As scheduled. Meaningful Use Info Meaningful Use Diagnoses (Choose all that apply): None applicable Discharge Plan Admission Admit Date/Time: 12/28/23 18:06 Primary Reason for Your Visit: Debility. Attending Provider: Chito Degroot Chi Primary Care Provider: BIJU ALEXANDER Consulting Providers: Steve Camargo Instructions Additional Instructions / Restrictions: Discharge home alone 01/29/2024, [facility] PT/OT/SN. Discharge Orders/Prescriptions Prescriptions: New polysaccharide iron complex [Ferrex 150] 150 mg iron Capsule 150 mg PO DAILYCM 30 Days Qty: 30 0RF acetaminophen 500 mg Tablet 1,000 mg PO Q6H PRN (Reason: Pain Score 1-10) Qty: 0 0RF acetaminophen 500 mg Tablet 1,000 mg PO 0800,2200 Qty: 0 0RF ascorbic acid (vitamin C) 500 mg Tablet 500 mg PO BREAKFAST 30 Days Qty: 30 0RF tamsulosin 0.4 mg Capsule 0.4 mg PO DAILY@1730 30 Days Qty: 30 0RF pantoprazole 40 mg Tablet,Delayed Release (Dr/Ec) 40 mg PO DAILY 30 Days Qty: 30 0RF bumetanide 0.5 mg Tablet 1 mg PO DAILY Qty: 0 0RF allopurinol 300 mg Tablet 300 mg PO QHS 30 Days Qty: 30 0RF insulin lispro [Humalog KwikPen Insulin] 100 unit/mL Insulin Pen 10 unit subcut TIDAC 30 Days Qty: 9 0RF Continued folic acid 1 mg tablet 1 mg PO DAILY miconazole nitrate 2 % powder 1 applic topical BID Rx Instructions: groin insulin glargine 100 unit/mL (3 mL) insulin pen 18 unit subcut BID aspirin 81 mg tablet,delayed release (DR/EC) 81 mg PO DAILY cholecalciferol (vitamin D3) 125 mcg (5,000 unit) capsule 125 mcg PO DAILY fenofibrate 150 mg capsule 145 mg PO QHS Discontinued acetaminophen 325 mg tablet 650 mg PO Q6H PRN (Reason: pain) pantoprazole 40 mg tablet,delayed release (DR/EC) 40 mg PO DAILY allopurinol 300 mg tablet 300 mg PO QHS bumetanide 2 mg tablet 2 mg PO DAILY calcium acetate 667 mg tablet 667 mg PO BID Rx Instructions: twice a day with meals emollient Cream 1 applic topical BID Rx Instructions: 2 times a day to legs polysaccharide iron complex [Ferrex 150] 150 mg iron capsule 150 mg PO DAILY pioglitazone [Actos] 45 mg tablet 45 mg PO DAILY sodium bicarbonate 650 mg tablet 650 mg PO DAILY ceftriaxone 2 gram piggyback 2 g IV Q24H Rx Instructions: infuse over 30 minutes insulin aspart See Protocol subcut ACHS Protocol: 1. Sliding Scale Insulin Low Dosing Condition: 150-224 mg/dl = 1 unit Condition: 225-299 mg/dl = 2 units Condition: 300-374 mg/dl = 3 units Condition: 375-499 mg/dl = 4 units Condition: Greater than 449 call physician Protocol Text: - Use for Total Daily Dose of Insulin 15-27 units - Thin, elderly, renal patients LOW DOSING ALGORITHM Rx Instructions: sliding scale No Action latanoprost 0.005 % drops 1 drp EACH EYE QHS Referrals / Follow Up: BIJU ALEXANDER [Other] Disposition Disposition (needs filled in before D/C Order can be placed): Home Health Service
[2024-01-17 20:43] VITALS: PULSE 80; RESP 18; O2SAT 94
[2024-01-17 21:56] LABS: Bedside Glucose 95 mg/dL (74-106)
[2024-01-17] MEDS: MELATONIN 10 MG TABLET PO (22:04)
[2024-01-17] MEDS: Allopurinol 300 MG Tablet PO (22:05)
[2024-01-17] MEDS: Fenofibrate 145 MG Tablet PO (22:05)
[2024-01-17] MEDS: Latanoprost 0.005% 1 Bottle 1 DRP EACH EYE (22:06)
[2024-01-17] MEDS: Petrolatum 33% Tube 1 APPLIC TOPICAL (22:07)
[2024-01-17] MEDS: Clotrimazole/Betamethasone 1 Tube 1 APPLIC TOPICAL (23:30)
[2024-01-18 06:14] LABS: Bedside Glucose 153 mg/dL (74-106)
[2024-01-18 07:18] VITALS: BMI 46.7
[2024-01-18] MEDS: Iron Polysaccharide Complex 150 MG CAPSULE PO (08:01)
[2024-01-18] MEDS: Insulin Lispro 100 UNIT/ML INSULN.PEN 10 UNIT SC ×3 (08:01→18:18)
[2024-01-18] MEDS: Folic Acid 1 MG Tablet PO (08:01)
[2024-01-18] MEDS: Acetaminophen 500 MG Tablet 1000 MG PO ×3 (08:01→21:36)
[2024-01-18] MEDS: Bumetanide 0.5 MG Tablet 1 MG PO (08:02)
[2024-01-18] MEDS: Ascorbic Acid 500 MG Tablet PO (08:02)
[2024-01-18] MEDS: Aspirin E.C. 81 MG Tablet PO (08:02)
[2024-01-18] MEDS: Insulin Glargine-YFGN 100 UNIT/ML Pen 15 UNIT SC ×2 (08:03→21:36)
[2024-01-18] MEDS: Pantoprazole Sodium 40 MG Tablet PO (08:04)
[2024-01-18] MEDS: Cholecalciferol (Vit D3) 125 MCG CAPSULE (5,000 UNITS) PO (08:04)
[2024-01-18 12:16] LABS: Bedside Glucose 180 mg/dL (74-106)
[2024-01-18 17:24] LABS: Bedside Glucose 198 mg/dL (74-106)
[2024-01-18] MEDS: Tamsulosin HCl 0.4 MG Capsule 0.400000000000000022 MG PO (18:18)
[2024-01-18 21:33] LABS: Bedside Glucose 124 mg/dL (74-106)
[2024-01-18] MEDS: MELATONIN 10 MG TABLET PO (21:35)
[2024-01-18] MEDS: Allopurinol 300 MG Tablet PO (21:35)
[2024-01-18] MEDS: Fenofibrate 145 MG Tablet PO (21:35)
[2024-01-18] MEDS: Petrolatum 33% Tube 1 APPLIC TOPICAL (21:35)
[2024-01-18] MEDS: Clotrimazole/Betamethasone 1 Tube 1 APPLIC TOPICAL (21:36)
[2024-01-18] MEDS: Latanoprost 0.005% 1 Bottle 1 DRP EACH EYE (21:36)
[2024-01-19 06:00] LABS: Absolute Lymphocyte Count 1.21 X10^3/uL (0.83-4.51); Basophil# 0.04 X10^3/uL; Basophil% 0.6 % (0-1); Eosinophil# 0.17 X10^3/uL; Eosinophils% 2.3 % (0-5); Hematocrit 29.8 % (40-54); Hemoglobin 9.3 g/dL (13.0-16.5); Lymphocyte # 1.21 X10^3/ul (0.83-4.51); Lymphocyte % 16.6 % (19-41); Mean Corp Hgb Conc 31.2 g/dL (32-36); Mean Corpuscular Hgb 31.8 pg (27.0-32.0); Mean Corpuscular Volume 102.1 fL (80-94); Mean Platelet Vol. 9.1 fl (6.2-12.0); Monocyte# 0.77 X10^3/uL; Monocyte% 10.6 % (0-10); NRBC Flagged by Analyzer 0 % (0-5); Neutrophil # 5.04 X10^3/uL (2.7-7.7); Neutrophil % 69.3 % (47-70); Platelet Count 193 K/mm3 (150-450); RBC Distribution Width SD 60.6 fl (35.1-43.9); Red Blood Count 2.92 M/mm3 (4.6-6.2); White Blood Count 7.3 K/mm3 (4.4-11.0)
[2024-01-19 06:25] LABS: Anion Gap 4 (5-15); BUN 32 mg/dL (7-18); BUN/Creat Ratio 28.3 RATIO (10-20); Calcium,Total 8.8 mg/dL (8.5-10.1); Chloride 105 mmol/L (98-107); Creatinine, Serum 1.13 mg/dL (0.70-1.30); EST Glomerular Filtration Rate 68 mL/min (>60); Est Glom Filt Rate - Afr Amer 83 mL/min (>60); Estimated Creatinine Clearance 88.71 ml/min; Glucose 174 mg/dL (74-106); Potassium 3.8 mmol/L (3.5-5.1); Sodium Level 138 mmol/L (136-145)
[2024-01-19 06:47] LABS: Bedside Glucose 154 mg/dL (74-106)
[2024-01-19 08:27] VITALS: BP 119/59; PULSE 83; RESP 17; TEMP 36.4; O2SAT 97
[2024-01-19] MEDS: Insulin Lispro 100 UNIT/ML INSULN.PEN 10 UNIT SC ×3 (08:31→18:15)
[2024-01-19] MEDS: Acetaminophen 500 MG Tablet 1000 MG PO ×3 (08:31→22:15)
[2024-01-19] MEDS: Iron Polysaccharide Complex 150 MG CAPSULE PO (08:31)
[2024-01-19] MEDS: Aspirin E.C. 81 MG Tablet PO (08:31)
[2024-01-19] MEDS: Petrolatum 33% Tube 1 APPLIC TOPICAL ×2 (08:32→22:13)
[2024-01-19] MEDS: Bumetanide 0.5 MG Tablet 1 MG PO (08:32)
[2024-01-19] MEDS: Ascorbic Acid 500 MG Tablet PO (08:32)
[2024-01-19] MEDS: Insulin Glargine-YFGN 100 UNIT/ML Pen 15 UNIT SC ×2 (08:32→22:16)
[2024-01-19] MEDS: Folic Acid 1 MG Tablet PO (08:32)
[2024-01-19] MEDS: Clotrimazole/Betamethasone 1 Tube 1 APPLIC TOPICAL ×2 (08:33→22:14)
[2024-01-19] MEDS: Pantoprazole Sodium 40 MG Tablet PO (08:34)
[2024-01-19] MEDS: Cholecalciferol (Vit D3) 125 MCG CAPSULE (5,000 UNITS) PO (08:34)
[2024-01-19 10:00] VITALS: BMI 46.8
[2024-01-19 11:07] LABS: Bedside Glucose 179 mg/dL (74-106)
[2024-01-19 17:04] LABS: Bedside Glucose 142 mg/dL (74-106)
[2024-01-19] MEDS: Tamsulosin HCl 0.4 MG Capsule 0.400000000000000022 MG PO (18:17)
[2024-01-19 20:08] VITALS: PULSE 76; RESP 16; O2SAT 97
[2024-01-19 21:50] LABS: Bedside Glucose 126 mg/dL (74-106)
[2024-01-19] MEDS: MELATONIN 10 MG TABLET PO (22:15)
[2024-01-19] MEDS: Allopurinol 300 MG Tablet PO (22:15)
[2024-01-19] MEDS: Latanoprost 0.005% 1 Bottle 1 DRP EACH EYE (22:15)
[2024-01-19] MEDS: Fenofibrate 145 MG Tablet PO (22:15)
[2024-01-20 06:05] LABS: Bedside Glucose 170 mg/dL (74-106)
[2024-01-20 08:14] VITALS: BP 141/64; PULSE 83; RESP 16; TEMP 36.7; O2SAT 93
[2024-01-20] MEDS: Iron Polysaccharide Complex 150 MG CAPSULE PO (08:15)
[2024-01-20] MEDS: Insulin Lispro 100 UNIT/ML INSULN.PEN 10 UNIT SC ×3 (08:16→17:09)
[2024-01-20] MEDS: Bumetanide 0.5 MG Tablet 1 MG PO (08:17)
[2024-01-20] MEDS: Pantoprazole Sodium 40 MG Tablet PO (08:17)
[2024-01-20] MEDS: Cholecalciferol (Vit D3) 125 MCG CAPSULE (5,000 UNITS) PO (08:17)
[2024-01-20] MEDS: Insulin Glargine-YFGN 100 UNIT/ML Pen 15 UNIT SC ×2 (08:17→21:19)
[2024-01-20] MEDS: Acetaminophen 500 MG Tablet 1000 MG PO ×3 (08:17→21:18)
[2024-01-20] MEDS: Aspirin E.C. 81 MG Tablet PO (08:17)
[2024-01-20] MEDS: Folic Acid 1 MG Tablet PO (08:18)
[2024-01-20] MEDS: Clotrimazole/Betamethasone 1 Tube 1 APPLIC TOPICAL ×2 (08:18→21:17)
[2024-01-20] MEDS: Ascorbic Acid 500 MG Tablet PO (08:18)
[2024-01-20] MEDS: Petrolatum 33% Tube 1 APPLIC TOPICAL ×2 (08:18→21:17)
[2024-01-20 12:22] LABS: Bedside Glucose 150 mg/dL (74-106)
[2024-01-20 15:47] VITALS: BMI 46.8
[2024-01-20] MEDS: Tamsulosin HCl 0.4 MG Capsule 0.400000000000000022 MG PO (17:09)
[2024-01-20 17:32] LABS: Bedside Glucose 144 mg/dL (74-106)
[2024-01-20] MEDS: Latanoprost 0.005% 1 Bottle 1 DRP EACH EYE (21:17)
[2024-01-20] MEDS: MELATONIN 10 MG TABLET PO (21:18)
[2024-01-20] MEDS: Allopurinol 300 MG Tablet PO (21:18)
[2024-01-20] MEDS: Fenofibrate 145 MG Tablet PO (21:19)
[2024-01-20 21:34] VITALS: RESP 16
[2024-01-20 21:40] LABS: Bedside Glucose 144 mg/dL (74-106)
[2024-01-21 05:06] LABS: Hemoglobin 9.5 g/dL (13.0-16.5)
[2024-01-21 06:05] LABS: Bedside Glucose 136 mg/dL (74-106)
[2024-01-21 06:41] VITALS: BMI 46.7
[2024-01-21 07:59] VITALS: BP 128/96; PULSE 87; RESP 18; TEMP 36.6; O2SAT 92
[2024-01-21] MEDS: Insulin Glargine-YFGN 100 UNIT/ML Pen 15 UNIT SC ×2 (08:01→21:45)
[2024-01-21] MEDS: Aspirin E.C. 81 MG Tablet PO (08:02)
[2024-01-21] MEDS: Iron Polysaccharide Complex 150 MG CAPSULE PO (08:02)
[2024-01-21] MEDS: Folic Acid 1 MG Tablet PO (08:02)
[2024-01-21] MEDS: Cholecalciferol (Vit D3) 125 MCG CAPSULE (5,000 UNITS) PO (08:02)
[2024-01-21] MEDS: Bumetanide 0.5 MG Tablet 1 MG PO (08:02)
[2024-01-21] MEDS: Insulin Lispro 100 UNIT/ML INSULN.PEN 10 UNIT SC ×3 (08:02→17:12)
[2024-01-21] MEDS: Pantoprazole Sodium 40 MG Tablet PO (08:02)
[2024-01-21] MEDS: Acetaminophen 500 MG Tablet 1000 MG PO ×3 (08:02→21:49)
[2024-01-21] MEDS: Ascorbic Acid 500 MG Tablet PO (08:02)
[2024-01-21] MEDS: Petrolatum 33% Tube 1 APPLIC TOPICAL ×2 (08:04→21:45)
[2024-01-21] MEDS: Clotrimazole/Betamethasone 1 Tube 1 APPLIC TOPICAL ×2 (08:04→21:46)
[2024-01-21 12:03] LABS: Bedside Glucose 180 mg/dL (74-106)
[2024-01-21 16:33] LABS: Bedside Glucose 152 mg/dL (74-106)
[2024-01-21] MEDS: Tamsulosin HCl 0.4 MG Capsule 0.400000000000000022 MG PO (17:12)
--- NOTE | 2024-01-21 19:44 | NURSING ---
Addendum entered by Lilia Steve 01/22/24 00:40: Patient's SpO2 ranging from 92-95% on room air while sleeping. Patient not in respiratory distress. Awoke patient, he denies SOB at this time. Will continue to check SpO2 to determine need at HS. Original Note: Patient refusing oxygen at HS, says it doesn't help. Patient educated on importance of oxygen at night due to his sleep apnea. Patient continues to deny use at this time. This nurse will continue to monitor his SpO2 throughout the night and has spoke with patient that he may have to wear oxygen at night if his SpO2 drops. Patient verbally agrees to wear O2 if SpO2 levels are not maintained.
[2024-01-21 19:59] VITALS: RESP 16
[2024-01-21 21:37] LABS: Bedside Glucose 119 mg/dL (74-106)
[2024-01-21] MEDS: Latanoprost 0.005% 1 Bottle 1 DRP EACH EYE (21:44)
[2024-01-21] MEDS: MELATONIN 10 MG TABLET PO (21:46)
[2024-01-21] MEDS: Fenofibrate 145 MG Tablet PO (21:50)
[2024-01-21] MEDS: Allopurinol 300 MG Tablet PO (21:50)
--- NOTE | 2024-01-21 22:03 | NURSING ---
Previous 1,000mg Tylenol dose, intended to be PRN, was documented under 2200 YOLANDA dose at 1501. Due to this documentation, this nurse documented 2200 YOLANDA dose of 1,000mg Tylenol on PRN Tylenol documentation at 2149.
[2024-01-22 04:10] VITALS: BMI 46.6
[2024-01-22 04:18] VITALS: RESP 16
[2024-01-22 06:09] LABS: Bedside Glucose 142 mg/dL (74-106)
[2024-01-22] MEDS: Folic Acid 1 MG Tablet PO (09:35)
[2024-01-22] MEDS: Acetaminophen 500 MG Tablet 1000 MG PO ×3 (09:35→22:14)
[2024-01-22] MEDS: Bumetanide 0.5 MG Tablet 1 MG PO (09:35)
[2024-01-22] MEDS: Ascorbic Acid 500 MG Tablet PO (09:35)
[2024-01-22] MEDS: Iron Polysaccharide Complex 150 MG CAPSULE PO (09:35)
[2024-01-22] MEDS: Cholecalciferol (Vit D3) 125 MCG CAPSULE (5,000 UNITS) PO (09:35)
[2024-01-22] MEDS: Pantoprazole Sodium 40 MG Tablet PO (09:35)
[2024-01-22] MEDS: Aspirin E.C. 81 MG Tablet PO (09:35)
[2024-01-22] MEDS: Insulin Lispro 100 UNIT/ML INSULN.PEN 10 UNIT SC ×3 (09:36→17:39)
[2024-01-22] MEDS: Insulin Glargine-YFGN 100 UNIT/ML Pen 15 UNIT SC ×2 (09:37→22:13)
[2024-01-22] MEDS: Clotrimazole/Betamethasone 1 Tube 1 APPLIC TOPICAL ×2 (09:38→22:12)
[2024-01-22] MEDS: Petrolatum 33% Tube 1 APPLIC TOPICAL ×2 (09:38→22:14)
[2024-01-22 09:43] VITALS: BP 125/53; PULSE 83
[2024-01-22 11:42] LABS: Bedside Glucose 195 mg/dL (74-106)
[2024-01-22 15:33] VITALS: BP 127/65; PULSE 73; RESP 18; TEMP 36.6; O2SAT 96
[2024-01-22] MEDS: Tamsulosin HCl 0.4 MG Capsule 0.400000000000000022 MG PO (17:40)
--- NOTE | 2024-01-22 19:48 | PN.TCU_ITS ---
Subjective Subjective Resident seen, examined for regulatory visit. He is doing well. FNA thyroid nodule tomorrow with general surgery. Objective Data Objective Data Vital Signs: Vital Signs Temp Pulse Resp BP Pulse Ox O2 Del Method O2 Flow Rate 97.9 F 73 18 127/65 H 96 Room Air 96 01/22/24 15:33 01/22/24 15:33 01/22/24 15:33 01/22/24 15:33 01/22/24 15:33 01/22/24 15:33 01/12/24 13:26 Oxygen Flow Rate (L/min) 96 Oxygen Delivery Method Room Air Weight: 147.78 kg Body Mass Index (BMI) 46.6 Intake & Output: Intake and Output for Last 24 Hours 01/20/24 01/21/24 01/22/24 23:59 23:59 23:59 Intake Total 1080 / 1080 720 / 720 240 / 240 Balance 1080 / 1080 720 / 720 240 / 240 Medical Nutrition Assessment Dietitian: Malnutrition Criteria Met Start: 12/29/23 10:35 Freq: Status: Active Protocol: Document 12/29/23 10:35 [facility] (Rec: 12/29/23 10:35 [facility] [id number]) Nutrition Malnutrition Evidence of Malnutrition Exists Yes Malnutrition (moderate): Acute Illness/Injury Evidenced By Weight Loss (Severe),Physical Changes (Moderate) Clinical Problem Acute Disease or Injury Related Malnutrition Etiology related to weakness and debility Signs/Symptoms as evidenced by muscle loss throughout body and 18.75% wt loss in past 3 mo? PO intake good, but has been purposely eating smaller portions. Status Active Problem Recommendation Dietitian Recommendations/Changes Change diet to Regular Sodium Restricted - if issues w/ hypo /hyperglycemia then can change to therapeutic cho controlled diet Lab / Micro Data Attestation: I reviewed the patient's lab results. 01/21/24 04:35 01/19/24 05:23 Labs: Laboratory Results - last 24 hr 01/21/24 21:08: POC Glucose 119 H 01/22/24 05:39: POC Glucose 142 H 01/22/24 11:18: POC Glucose 195 H Micro: Microbiology 01/01/24 07:19 Nasal Secretion SARS-CoV-2 Antigen (Rapid) - Final Physical Exam Const alert General Appearance: cooperative HEENT normocephalic Eyes PERRL and EOMs intact bilaterally Neck supple, no JVD and no carotid bruits Resp normal respiratory effort, normal air movement and clear to auscultation bilaterally Cardio regular rate and regular rhythm GI normal to inspection, nondistended, normoactive bowel sounds, non-tender and non-distended Extremity normal capillary refill Extremity Narrative: Right forearm PICC. General Extremity: Negative for edema Skin no rashes or lesions noted General Skin Exam: no breakdown Psych affect normal Appearance: appropriate Assessment & Plan Assessment/Plan (1) Bacteremia due to group B Streptococcus: PLAN: Plan 68 year old male with below past medical hospitalized for Sepsis, Group B strep bacteremia, complicated by acute delirium, rhabdomyolysis, metabolic acidosis, admitted to TCU with debility, here for rehabilitation, strengthening, intravenous antibiotics, prior to discharge home alone. * Debility - PT/OT. * Pain - Tylenol 1000mg q6 prn pain (1-10), Tylenol 1000mg 0800, 2200. * Bowel - senna/colace 1 tablet bid prn, Magnesium citrate 300ml daily prn. * Adult immunization - Administer pneumonia vaccine, covid vaccine, flu vaccine as appropriate. * DVT prophylaxis - Hold, anemia. * Gout - Allopurinol 300mg qhs. * CV prophylaxis - Aspirin 81mg daily. * Edema - Bumex 1mg daily. * Vitamin D deficiency - D3 125mcg daily. * Hyperlipidemia - Fenofibrate 145mg qhs. * Folate deficiency - Foilc acid 1mg daily. * Diabetes Mellitus II - Glargine 15 units bid, Lispro 10 units tidac, Glucagon 1mg im x 1 prn. * Iron deficiency anemia - Ferrex 150mg daily, Vitamin C 500mg daily. * Glaucoma - Latanoprost 1gtt ou qhs. * Tinea Corporis - Lotrisone cream topical bid. * GERD - Pantoprazole 40mg daily. * Skin irritation - Eucerin topical bid. * Insomnia - Melatonin 10mg qhs. * BPH - Tamsulosin 0.4mg daily.
[2024-01-22 21:35] LABS: Bedside Glucose 142 mg/dL (74-106)
[2024-01-22] MEDS: MELATONIN 10 MG TABLET PO (22:15)
[2024-01-22] MEDS: Latanoprost 0.005% 1 Bottle 1 DRP EACH EYE (22:15)
[2024-01-22] MEDS: Fenofibrate 145 MG Tablet PO (22:15)
[2024-01-22] MEDS: Allopurinol 300 MG Tablet PO (22:15)
[2024-01-23 06:51] LABS: Bedside Glucose 153 mg/dL (74-106)
[2024-01-23] MEDS: Iron Polysaccharide Complex 150 MG CAPSULE PO (07:40)
[2024-01-23] MEDS: Insulin Lispro 100 UNIT/ML INSULN.PEN 10 UNIT SC ×3 (07:40→17:57)
[2024-01-23] MEDS: Folic Acid 1 MG Tablet PO (07:41)
[2024-01-23] MEDS: Acetaminophen 500 MG Tablet 1000 MG PO ×3 (07:41→21:36)
[2024-01-23] MEDS: Bumetanide 0.5 MG Tablet 1 MG PO (07:41)
[2024-01-23] MEDS: Ascorbic Acid 500 MG Tablet PO (07:41)
[2024-01-23] MEDS: Aspirin E.C. 81 MG Tablet PO (07:42)
[2024-01-23] MEDS: Insulin Glargine-YFGN 100 UNIT/ML Pen 15 UNIT SC ×2 (07:42→21:34)
[2024-01-23] MEDS: Pantoprazole Sodium 40 MG Tablet PO (07:42)
[2024-01-23] MEDS: Cholecalciferol (Vit D3) 125 MCG CAPSULE (5,000 UNITS) PO (07:43)
[2024-01-23 09:00] VITALS: BMI 46.2
[2024-01-23 10:00] VITALS: BMI 46.2
[2024-01-23 11:59] LABS: Bedside Glucose 146 mg/dL (74-106)
--- NOTE | 2024-01-23 12:02 | NURSING ---
Return from Dr. Schreiber appointment with [facility]. Patient reports BX was taken from lump to upper chest and expected to get results in 4-5 days.
[2024-01-23 16:00] VITALS: BP 125/64; PULSE 76; RESP 17; TEMP 36.9; O2SAT 97
[2024-01-23 17:29] LABS: Bedside Glucose 181 mg/dL (74-106)
[2024-01-23] MEDS: Tamsulosin HCl 0.4 MG Capsule 0.400000000000000022 MG PO (17:58)
[2024-01-23] MEDS: Clotrimazole/Betamethasone 1 Tube 1 APPLIC TOPICAL (21:35)
[2024-01-23] MEDS: Fenofibrate 145 MG Tablet PO (21:36)
[2024-01-23] MEDS: MELATONIN 10 MG TABLET PO (21:36)
[2024-01-23] MEDS: Petrolatum 33% Tube 1 APPLIC TOPICAL (21:37)
[2024-01-23] MEDS: Allopurinol 300 MG Tablet PO (21:37)
[2024-01-23] MEDS: Latanoprost 0.005% 1 Bottle 1 DRP EACH EYE (21:37)
[2024-01-23 21:46] VITALS: RESP 16
[2024-01-23 21:49] LABS: Bedside Glucose 162 mg/dL (74-106)
[2024-01-24 06:33] LABS: Bedside Glucose 131 mg/dL (74-106)
[2024-01-24] MEDS: Acetaminophen 500 MG Tablet 1000 MG PO ×3 (08:28→21:49)
[2024-01-24] MEDS: Bumetanide 0.5 MG Tablet 1 MG PO (08:28)
[2024-01-24] MEDS: Aspirin E.C. 81 MG Tablet PO (08:28)
[2024-01-24] MEDS: Pantoprazole Sodium 40 MG Tablet PO (08:28)
[2024-01-24] MEDS: Cholecalciferol (Vit D3) 125 MCG CAPSULE (5,000 UNITS) PO (08:28)
[2024-01-24] MEDS: Folic Acid 1 MG Tablet PO (08:28)
[2024-01-24] MEDS: Ascorbic Acid 500 MG Tablet PO (08:28)
[2024-01-24] MEDS: Iron Polysaccharide Complex 150 MG CAPSULE PO (08:28)
[2024-01-24] MEDS: Insulin Glargine-YFGN 100 UNIT/ML Pen 15 UNIT SC ×2 (08:29→21:50)
[2024-01-24] MEDS: Insulin Lispro 100 UNIT/ML INSULN.PEN 10 UNIT SC ×3 (08:29→17:49)
[2024-01-24 10:00] VITALS: PULSE 74; O2SAT 96; BMI 46.1
[2024-01-24] MEDS: Petrolatum 33% Tube 1 APPLIC TOPICAL ×2 (10:37→21:51)
[2024-01-24 13:45] LABS: Bedside Glucose 129 mg/dL (74-106)
[2024-01-24 16:00] VITALS: BP 122/53; PULSE 76; RESP 16; TEMP 36.2; O2SAT 98
[2024-01-24 16:40] LABS: Bedside Glucose 115 mg/dL (74-106)
[2024-01-24] MEDS: Tamsulosin HCl 0.4 MG Capsule 0.400000000000000022 MG PO (17:49)
[2024-01-24] MEDS: Allopurinol 300 MG Tablet PO (21:49)
[2024-01-24] MEDS: Fenofibrate 145 MG Tablet PO (21:50)
[2024-01-24] MEDS: MELATONIN 10 MG TABLET PO (21:50)
[2024-01-24] MEDS: Latanoprost 0.005% 1 Bottle 1 DRP EACH EYE (21:51)
[2024-01-24] MEDS: Clotrimazole/Betamethasone 1 Tube 1 APPLIC TOPICAL (21:51)
[2024-01-24 21:56] LABS: Bedside Glucose 86 mg/dL (74-106)
--- NOTE | 2024-01-24 22:20 | NURSING ---
Addendum entered by Lilia Steve 01/25/24 02:21: Rechecked patient's blood sugar, 141 at this time. Original Note: Patient's blood sugar 86 at HS. Patient offered and agreed to have orange juice and cookies. Scheduled Lantus given with HS medications as ordered. This nurse will recheck blood sugar at a later time.
[2024-01-25 02:35] LABS: Bedside Glucose 141 mg/dL (74-106)
[2024-01-25 06:14] LABS: Bedside Glucose 140 mg/dL (74-106)
[2024-01-25 07:56] VITALS: BP 116/48; PULSE 62; RESP 16; TEMP 35.5; O2SAT 96
[2024-01-25] MEDS: Insulin Lispro 100 UNIT/ML INSULN.PEN 10 UNIT SC ×3 (07:57→18:04)
[2024-01-25] MEDS: Insulin Glargine-YFGN 100 UNIT/ML Pen 15 UNIT SC ×2 (07:57→22:48)
[2024-01-25] MEDS: Acetaminophen 500 MG Tablet 1000 MG PO ×3 (07:58→22:46)
[2024-01-25] MEDS: Folic Acid 1 MG Tablet PO (07:58)
[2024-01-25] MEDS: Ascorbic Acid 500 MG Tablet PO (07:58)
[2024-01-25] MEDS: Aspirin E.C. 81 MG Tablet PO (07:58)
[2024-01-25] MEDS: Clotrimazole/Betamethasone 1 Tube 1 APPLIC TOPICAL ×2 (07:58→22:45)
[2024-01-25] MEDS: Bumetanide 0.5 MG Tablet 1 MG PO (07:58)
[2024-01-25] MEDS: Iron Polysaccharide Complex 150 MG CAPSULE PO (07:58)
[2024-01-25] MEDS: Pantoprazole Sodium 40 MG Tablet PO (07:58)
[2024-01-25] MEDS: Cholecalciferol (Vit D3) 125 MCG CAPSULE (5,000 UNITS) PO (07:58)
[2024-01-25] MEDS: Petrolatum 33% Tube 1 APPLIC TOPICAL ×2 (07:59→22:47)
[2024-01-25 10:00] VITALS: BMI 46.7
[2024-01-25 11:07] LABS: Bedside Glucose 90 mg/dL (74-106)
[2024-01-25 16:15] LABS: Bedside Glucose 112 mg/dL (74-106)
[2024-01-25] MEDS: Tamsulosin HCl 0.4 MG Capsule 0.400000000000000022 MG PO (18:04)
[2024-01-25 22:14] LABS: Bedside Glucose 159 mg/dL (74-106)
[2024-01-25] MEDS: Latanoprost 0.005% 1 Bottle 1 DRP EACH EYE (22:47)
[2024-01-25] MEDS: Fenofibrate 145 MG Tablet PO (22:47)
[2024-01-25] MEDS: MELATONIN 10 MG TABLET PO (22:47)
[2024-01-25] MEDS: Allopurinol 300 MG Tablet PO (22:47)
[2024-01-25 23:00] VITALS: PULSE 75; RESP 18; O2SAT 97
[2024-01-26 06:11] LABS: Absolute Lymphocyte Count 1.05 X10^3/uL (0.83-4.51); Absolute Neutrophil Count 3.7 X10^3/uL (2.0-7.7); Basophil# 0.02 X10^3/uL; Basophil% 0.4 % (0-1); Eosinophil# 0.14 X10^3/uL; Eosinophils% 2.5 % (0-5); Hematocrit 33.2 % (40-54); Hemoglobin 10.3 g/dL (13.0-16.5); Lymphocyte # 1.05 X10^3/ul (0.83-4.51); Lymphocyte % 18.8 % (19-41); Mean Corpuscular Hgb 31.9 pg (27.0-32.0); Mean Corpuscular Volume 102.8 fL (80-94); Mean Platelet Vol. 8.6 fl (6.2-12.0); Monocyte# 0.61 X10^3/uL; Monocyte% 10.9 % (0-10); NRBC Flagged by Analyzer 0 % (0-5); Neutrophil # 3.74 X10^3/uL (2.7-7.7); Neutrophil % 66.9 % (47-70); Platelet Count 256 K/mm3 (150-450); RBC Distribution Width CV 15.2 % (11.6-14.6); RBC Distribution Width SD 57.2 fl (35.1-43.9); Red Blood Count 3.23 M/mm3 (4.6-6.2); White Blood Count 5.6 K/mm3 (4.4-11.0)
[2024-01-26 06:45] LABS: Bedside Glucose 166 mg/dL (74-106)
[2024-01-26 06:51] LABS: Anion Gap 5 (5-15); BUN 34 mg/dL (7-18); BUN/Creat Ratio 28.8 RATIO (10-20); Chloride 104 mmol/L (98-107); Creatinine, Serum 1.18 mg/dL (0.70-1.30); EST Glomerular Filtration Rate 65 mL/min (>60); Est Glom Filt Rate - Afr Amer 79 mL/min (>60); Estimated Creatinine Clearance 84.87 ml/min; Glucose 198 mg/dL (74-106); Potassium 3.6 mmol/L (3.5-5.1); Sodium Level 140 mmol/L (136-145)
[2024-01-26] MEDS: Insulin Glargine-YFGN 100 UNIT/ML Pen 15 UNIT SC ×2 (08:44→22:43)
[2024-01-26] MEDS: Insulin Lispro 100 UNIT/ML INSULN.PEN 10 UNIT SC ×3 (08:44→17:31)
[2024-01-26] MEDS: Folic Acid 1 MG Tablet PO (08:45)
[2024-01-26] MEDS: Iron Polysaccharide Complex 150 MG CAPSULE PO (08:45)
[2024-01-26] MEDS: Petrolatum 33% Tube 1 APPLIC TOPICAL ×2 (08:45→22:27)
[2024-01-26] MEDS: Pantoprazole Sodium 40 MG Tablet PO (08:45)
[2024-01-26] MEDS: Ascorbic Acid 500 MG Tablet PO (08:45)
[2024-01-26] MEDS: Cholecalciferol (Vit D3) 125 MCG CAPSULE (5,000 UNITS) PO (08:45)
[2024-01-26] MEDS: Aspirin E.C. 81 MG Tablet PO (08:45)
[2024-01-26] MEDS: Bumetanide 0.5 MG Tablet 1 MG PO (08:45)
[2024-01-26] MEDS: Acetaminophen 500 MG Tablet 1000 MG PO ×3 (08:45→22:27)
[2024-01-26] MEDS: Clotrimazole/Betamethasone 1 Tube 1 APPLIC TOPICAL ×2 (08:46→22:26)
[2024-01-26 08:48] VITALS: BP 127/52; PULSE 79; RESP 16; TEMP 36.4; O2SAT 93
[2024-01-26 10:00] VITALS: BMI 46.0
[2024-01-26 12:28] LABS: Bedside Glucose 214 mg/dL (74-106)
[2024-01-26 17:08] LABS: Bedside Glucose 156 mg/dL (74-106)
[2024-01-26] MEDS: Tamsulosin HCl 0.4 MG Capsule 0.400000000000000022 MG PO (17:31)
[2024-01-26 21:26] LABS: Bedside Glucose 86 mg/dL (74-106)
[2024-01-26 21:59] VITALS: PULSE 72; RESP 16; O2SAT 96
[2024-01-26] MEDS: MELATONIN 10 MG TABLET PO (22:29)
[2024-01-26] MEDS: Latanoprost 0.005% 1 Bottle 1 DRP EACH EYE (22:29)
[2024-01-26] MEDS: Fenofibrate 145 MG Tablet PO (22:29)
[2024-01-26] MEDS: Allopurinol 300 MG Tablet PO (22:30)
[2024-01-26 23:04] LABS: Bedside Glucose 148 mg/dL (74-106)
[2024-01-27 06:55] LABS: Bedside Glucose 190 mg/dL (74-106)
[2024-01-27] MEDS: Acetaminophen 500 MG Tablet 1000 MG PO ×3 (07:59→22:22)
[2024-01-27] MEDS: Bumetanide 0.5 MG Tablet 1 MG PO (07:59)
[2024-01-27] MEDS: Folic Acid 1 MG Tablet PO (07:59)
[2024-01-27] MEDS: Iron Polysaccharide Complex 150 MG CAPSULE PO (07:59)
[2024-01-27] MEDS: Ascorbic Acid 500 MG Tablet PO (07:59)
[2024-01-27] MEDS: Cholecalciferol (Vit D3) 125 MCG CAPSULE (5,000 UNITS) PO (07:59)
[2024-01-27] MEDS: Pantoprazole Sodium 40 MG Tablet PO (07:59)
[2024-01-27] MEDS: Insulin Lispro 100 UNIT/ML INSULN.PEN 10 UNIT SC ×3 (08:00→17:40)
[2024-01-27] MEDS: Aspirin E.C. 81 MG Tablet PO (08:00)
[2024-01-27] MEDS: Clotrimazole/Betamethasone 1 Tube 1 APPLIC TOPICAL ×2 (08:00→22:18)
[2024-01-27] MEDS: Insulin Glargine-YFGN 100 UNIT/ML Pen 15 UNIT SC ×2 (08:00→22:20)
[2024-01-27] MEDS: Petrolatum 33% Tube 1 APPLIC TOPICAL ×2 (08:01→22:25)
[2024-01-27 08:06] VITALS: BP 127/56; PULSE 60
[2024-01-27 10:00] VITALS: BMI 46.0
[2024-01-27 11:29] LABS: Bedside Glucose 128 mg/dL (74-106)
[2024-01-27 15:41] VITALS: BP 110/72; PULSE 72; RESP 14; TEMP 36.6; O2SAT 98
[2024-01-27 16:34] LABS: Bedside Glucose 157 mg/dL (74-106)
[2024-01-27] MEDS: Tamsulosin HCl 0.4 MG Capsule 0.400000000000000022 MG PO (17:40)
[2024-01-27 21:45] LABS: Bedside Glucose 124 mg/dL (74-106)
[2024-01-27] MEDS: Fenofibrate 145 MG Tablet PO (22:22)
[2024-01-27] MEDS: MELATONIN 10 MG TABLET PO (22:23)
[2024-01-27] MEDS: Latanoprost 0.005% 1 Bottle 1 DRP EACH EYE (22:24)
[2024-01-27] MEDS: Allopurinol 300 MG Tablet PO (22:26)
--- NOTE | 2024-01-27 23:33 | NURSING ---
One packet of Michelle Doones given for hs snack per pt request.
[2024-01-28 06:32] LABS: Bedside Glucose 183 mg/dL (74-106)
[2024-01-28] MEDS: Insulin Lispro 100 UNIT/ML INSULN.PEN 10 UNIT SC ×3 (07:56→17:39)
[2024-01-28] MEDS: Bumetanide 0.5 MG Tablet 1 MG PO (07:57)
[2024-01-28] MEDS: Insulin Glargine-YFGN 100 UNIT/ML Pen 15 UNIT SC ×2 (07:57→23:17)
[2024-01-28] MEDS: Acetaminophen 500 MG Tablet 1000 MG PO ×3 (07:57→23:19)
[2024-01-28] MEDS: Aspirin E.C. 81 MG Tablet PO (07:57)
[2024-01-28] MEDS: Folic Acid 1 MG Tablet PO (07:57)
[2024-01-28] MEDS: Cholecalciferol (Vit D3) 125 MCG CAPSULE (5,000 UNITS) PO (07:57)
[2024-01-28] MEDS: Iron Polysaccharide Complex 150 MG CAPSULE PO (07:57)
[2024-01-28] MEDS: Pantoprazole Sodium 40 MG Tablet PO (07:57)
[2024-01-28] MEDS: Petrolatum 33% Tube 1 APPLIC TOPICAL ×2 (07:58→23:21)
[2024-01-28] MEDS: Ascorbic Acid 500 MG Tablet PO (07:58)
[2024-01-28 08:04] VITALS: BP 126/62; PULSE 76
[2024-01-28 09:04] VITALS: BMI 46.1
[2024-01-28 11:17] LABS: Bedside Glucose 153 mg/dL (74-106)
--- NOTE | 2024-01-28 12:03 | NURSING ---
Pt demonstrated how to give self own insulin.
[2024-01-28 15:44] VITALS: BP 122/65; PULSE 86; RESP 18; TEMP 36.7; O2SAT 97
[2024-01-28 16:30] LABS: Bedside Glucose 155 mg/dL (74-106)
[2024-01-28] MEDS: Tamsulosin HCl 0.4 MG Capsule 0.400000000000000022 MG PO (17:40)
[2024-01-28 21:25] LABS: Bedside Glucose 188 mg/dL (74-106)
[2024-01-28] MEDS: Clotrimazole/Betamethasone 1 Tube 1 APPLIC TOPICAL (23:18)
[2024-01-28] MEDS: Latanoprost 0.005% 1 Bottle 1 DRP EACH EYE (23:20)
[2024-01-28] MEDS: Allopurinol 300 MG Tablet PO (23:20)
[2024-01-28] MEDS: MELATONIN 10 MG TABLET PO (23:21)
[2024-01-28] MEDS: Fenofibrate 145 MG Tablet PO (23:32)
[2024-01-29 06:10] VITALS: O2SAT 98
[2024-01-29 06:12] LABS: Bedside Glucose 179 mg/dL (74-106)
[2024-01-29 07:55] VITALS: BP 149/66; PULSE 78; RESP 18; TEMP 36.6; O2SAT 96
[2024-01-29] MEDS: Insulin Lispro 100 UNIT/ML INSULN.PEN 10 UNIT SC ×2 (08:00→11:58)
[2024-01-29] MEDS: Pantoprazole Sodium 40 MG Tablet PO (08:01)
[2024-01-29] MEDS: Ascorbic Acid 500 MG Tablet PO (08:01)
[2024-01-29] MEDS: Acetaminophen 500 MG Tablet 1000 MG PO (08:01)
[2024-01-29] MEDS: Iron Polysaccharide Complex 150 MG CAPSULE PO (08:01)
[2024-01-29] MEDS: Folic Acid 1 MG Tablet PO (08:01)
[2024-01-29] MEDS: Aspirin E.C. 81 MG Tablet PO (08:01)
[2024-01-29] MEDS: Cholecalciferol (Vit D3) 125 MCG CAPSULE (5,000 UNITS) PO (08:01)
[2024-01-29] MEDS: Insulin Glargine-YFGN 100 UNIT/ML Pen 15 UNIT SC (08:02)
[2024-01-29] MEDS: Petrolatum 33% Tube 1 APPLIC TOPICAL (08:02)
--- NOTE | 2024-01-29 10:11 | CASEMGMT ---
Social Work BIMS () and PHQ-2 () completed for MDS assessment. Latia Sterling MSW SEED CLEANING MANAGER
[2024-01-29 11:08] LABS: Bedside Glucose 183 mg/dL (74-106)
== END 2024-01-29 12:00 | disposition home health service (06) | DRG 194 ==
PROVIDERS: Admitting Provider Family Medicine Geriatric Medicine; Visit Provider Family Medicine Geriatric Medicine
DX: J15.3 Pneumonia due to streptococcus, group B (principal); M62.82 Rhabdomyolysis; R78.81 Bacteremia; E87.20 Acidosis, unspecified; Z68.42 Body mass index [BMI] 45.0-49.9, adult; F11.20 Opioid dependence, uncomplicated; D63.1 Anemia in chronic kidney disease; E11.22 Type 2 diabetes mellitus with diabetic chronic kidney disease; N18.31 Chronic kidney disease, stage 3a; E66.01 Morbid (severe) obesity due to excess calories; E11.39 Type 2 diabetes mellitus with other diabetic ophthalmic complication; Z79.4 Long term (current) use of insulin; I12.9 Hypertensive chronic kidney disease with stage 1 through stage 4 chronic kidney disease, or unspecified chronic kidney disease; E04.2 Nontoxic multinodular goiter; D50.9 Iron deficiency anemia, unspecified; K52.9 Noninfective gastroenteritis and colitis, unspecified; G47.33 Obstructive sleep apnea (adult) (pediatric); K42.9 Umbilical hernia without obstruction or gangrene; M10.9 Gout, unspecified; E55.9 Vitamin D deficiency, unspecified; K21.9 Gastro-esophageal reflux disease without esophagitis; E78.5 Hyperlipidemia, unspecified; E53.8 Deficiency of other specified B group vitamins; B35.4 Tinea corporis; Z79.82 Long term (current) use of aspirin; H40.9 Unspecified glaucoma; Z79.899 Other long term (current) drug therapy; Z91.81 History of falling; G47.00 Insomnia, unspecified; N40.0 Benign prostatic hyperplasia without lower urinary tract symptoms
CPT/HCPCS: 36415; 76536; 76882; 80048; 80061; 82962; 84100; 84439; 84443; 84479; 85014; 85018; 85025; 87811; 88108; 88161; 88305; 88313; 97110; 97116; 97162; 97166; 97530; 97535; 97802; J7050; A4216

== ENCOUNTER → 2023-12-29 | Outpatient (CLI) | payer MEDICARE, OTHER, SELFPAY ==
--- NOTE | 2023-12-29 17:06 | MRI_ITS ---
EXAM: MR LEFT UPPER EXTREMITY WITHOUT INTRAVENOUS CONTRAST, SHOULDER CLINICAL INDICATION: L ROTATOR CUFF TEAR TECHNIQUE: Multiplanar and multisequence MR images of the left shoulder without intravenous contrast. COMPARISON: No relevant prior studies available. FINDINGS: ARTIFACTS: Motion artifact limits assessment. TENDONS: SUPRASPINATUS: Supraspinatus tendon is intact. INFRASPINATUS: Infraspinatus tendon is intact. SUBSCAPULARIS: Unremarkable. Intact. TERES MINOR: Unremarkable. Intact. BICEPS BRACHII, LONG HEAD: Unremarkable. The extra-articular biceps tendon is in the bicipital groove. The intra-articular biceps tendon is normal. LIGAMENTS: GLENOHUMERAL: Unremarkable. Intact. MUSCLES: Unremarkable. No rotator cuff muscle atrophy. FLUID: Small amount of fluid in the subacromial subdeltoid is nonspecific and be seen with bursitis in the appropriate clinical setting. No significant glenohumeral joint effusion. CARTILAGE: Unremarkable. Articular cartilage intact. GLENOID LABRUM: A labral tear is not seen within the limits of this examination. BONES/JOINTS: Moderate hypertrophic degenerative changes of the acromioclavicular joint with mild to moderate mass effect on the underlying soft tissues. Subscapularis is intact. Type I, with flat undersurface. There is a prominent subacromial enthesophyte anteriorly. No os acromiale. OTHER SOFT TISSUES: Focal fluid density along the deltoid muscle posterolaterally and the subcutaneous. Subcutaneous edema overlying the clavicle/trapezius region. MRI/Upper Ext Joint Only(Routine) IMPRESSION: 1. Small amount of fluid in the subacromial subdeltoid is nonspecific and be seen with bursitis in the appropriate clinical setting. 2. Prominent subacromial enthesophyte anteriorly. 3. Moderate hypertrophic degenerative changes of the acromioclavicular joint with mild to moderate mass effect on the underlying soft tissues. 4. No definite rotator cuff or labral tear. Electronically Signed: Bud Zaman MD at 4:44 EST ,
--- NOTE | 2023-12-29 18:10 | RAD_ITS ---
INDICATION: FOREIGN BODY MRI CLEARANCE EXAMINATION/TECHNIQUE: X-RAY - BILATERAL XR Orbits Clearance FB COMPARISON: 12/28/2023. FINDINGS: No metallic foreign body visualized. No blastic or lytic lesions. No degenerative changes are seen. The soft tissues are unremarkable. RAD/Orbits for Foreign Body IMPRESSION: No metallic foreign body visualized. Electronically Signed: Adan Del Rio MD at 18:53 EST ,
== END | disposition home or self-care (01) ==
LOC: MRI 16:06
PROVIDERS: Referring Provider Family Medicine Geriatric Medicine; Visit Provider Family Medicine Geriatric Medicine
DX: M25.512 Pain in left shoulder (principal); X58.XXXA Exposure to other specified factors, initial encounter
CPT/HCPCS: 70030; 73221

== ENCOUNTER → 2024-01-23 | Outpatient (CLI) | payer MEDICARE, OTHER, SELFPAY ==
--- NOTE | 2024-01-23 10:30 | FLU_PTH ---
PATHOLOGY RESULTS PATIENT: ERASMO CARRILLO LOC: [facility] U#:[id number] AGE/SX: 69/M ROOM: RE01/23/[address]: Dr. Erasmo Schreiber MD : 1955 BED: DIS: 01/23/2024 SPEC #: [id number] RECD: 01/23/24 12:09 STATUS: BRYN RUBIN #: [id number] DANUTA: 01/23/24 10:[address]: Erasmo Schreiber DEPT: CYTOLOGY RECD BY: Darling Owens ENTERED: 01/23/24 13:40 SP TYPE: Fluid Tissues: Thyroid gland, NOS Thyroid gland, NOS Procedures: Special Stain Group II Surgery Specimen Level IV Cytospin Fluid Cytology Other HEADER OPERATION: Fine needle aspiration left thyroid nodule PRE-OP DIAGNOSIS: Left thyroid nodule TISSUE SUBMITTED: A - Left thyroid nodule fluid, B - Left thyroid x4 slides DIAGNOSIS CYTOLOGY A. Left thyroid nodule fluid, fine needle aspiration (cytospin and cell block): Negative for follicular cells. See comment. B. Left thyroid nodule, fine needle aspiration (smears): Nondiagnostic specimen, [place] Category 1. See comment. SJ:kike 01/24/2024 COMMENT A. Rare follicular cells and macrophages are noted. B. Follicular cells are not seen. Correlation with clinical, radiologic findings and appropriate follow up are necessary. Repeat biopsy is suggested if clinically indicated. The [place] System for thyroid diagnostic categorization was used in the evaluation of this case. Case has been reviewed in consultation with Dr. Gomez who concurs with the above diagnosis. IDC:AM CYTOLOGY STUDY Slides are reviewed. CYTOLOGY GROSS A - Received is 30 ml of light red cloudy fluid labeled with the patient's name and and designated per the requisition as left thyroid nodule. Submitted for cytology preparation including cell block. B - Received are four smears labeled with the patient's name and designated per the requisition as left thyroid nodule. Submitted for staining. / kike 01/23/2024 TC: Cannot code CPT: 82059 x2, [id number]
== END | disposition home or self-care (01) ==
PROVIDERS: Referring Provider Surgery; Visit Provider Surgery
DX: E04.1 Nontoxic single thyroid nodule (principal)
CPT/HCPCS: 88108; 88161; 88305; 88313